=== PATIENT | male | born 1945 | race Caucasian/White ===

== ENCOUNTER → 2020-06-24 13:48 | Outpatient (BNVA) | payer MEDICARE, SELFPAY | PROVIDERS: PCP Internal Medicine; Visit Provider Nurse Practitioner Family | DX: Z13.89 Encounter for screening for other disorder (principal) | CPT/HCPCS: Q3014 ==

== ENCOUNTER 2020-08-24 06:32 | Day surgery (SDC) | payer MEDICARE, SELFPAY ==
--- NOTE | 2020-08-20 08:24 | P.CONAN_ITS ---
HPI - Anesthesia Eval Consult details Narrative: 75yo M for Colonoscopy [facility] Past Medical History Medical History (Updated 08/17/20 @ 14:00 by Dinorah Parekh) GERD (gastroesophageal reflux disease) History of memory loss HTN (hypertension) Hyperlipidemia Lab test negative for COVID-19 virus Vitamin B12 deficiency Family History Family History Father Hx of type 1 diabetes mellitus Mother No problems noted. Surgical History Surgical History History of colonoscopy History of ERCP Social History Social History Alcohol intake: never Smoking Status: Never smoker Meds Allergies Allergy/AdvReac Type Severity Reaction Status Date / Time No Known Allergies Allergy Mild NOT Verified 08/17/20 12:05 APPLICABLE Home Medications Medication Instructions Recorded Confirmed Last Taken Type aspirin 81 mg tablet,delayed 81 mg PO DAILY 06/24/20 08/17/20 Unknown History release atorvastatin 20 mg tablet 20 mg PO DAILY 06/24/20 08/17/20 Unknown History lisinopril 40 mg tablet 40 mg PO DAILY 06/24/20 08/17/20 Unknown History mecobalamin (vitamin B12) 10,000 mcg IM 06/24/20 06/24/20 Unknown History mcg solution for injection memantine 5 mg tablet 5 mg PO QPM 06/24/20 08/17/20 Unknown History pantoprazole 20 mg tablet,delayed 20 mg PO DAILY 06/24/20 08/17/20 Unknown History release Exam Exam Date and Time: August 20, 2020 0824 Height,Weight and Vital Signs: Height 5 ft 5 in Assessment and Plan Assessment Anesthesia Assessment: Chart Reviewed
[2020-08-24 07:12] VITALS: BP 126/93; PULSE 73; RESP 18; TEMP 36.5; O2SAT 97; BMI 28.3
--- NOTE | 2020-08-24 07:30 | P.CONAN_ITS ---
[facility] Past Medical History Medical History (Updated 08/17/20 @ 14:00 by Dinorah Parekh) GERD (gastroesophageal reflux disease) History of memory loss HTN (hypertension) Hyperlipidemia Lab test negative for COVID-19 virus Vitamin B12 deficiency Family History Family History Father Hx of type 1 diabetes mellitus Mother No problems noted. Surgical History Surgical History History of colonoscopy History of ERCP Social History Social History Are you a primary child care associate to a significant other at home: No Do you presently have visiting nurse or other home services: No Alcohol intake: never Smoking Status: Never smoker Use of substances other than those prescribed or required for medical reasons: No Have you been hit, kicked, punched, or otherwise hurt by someone within the past year? If so, by whom?: No Advance Directives Information Provided: No Recently lost weight without trying: No Meds Allergies Allergy/AdvReac Type Severity Reaction Status Date / Time No Known Allergies Allergy Mild NOT Verified 08/17/20 12:05 APPLICABLE Active Medications: Current Medications Generic Name Dose Route Start Last Admin Trade Name Santos PRN Reason Stop Dose Admin Lactated Ringer's 1,000 mls @ 100 mls/hr 08/24/20 07:15 Lr IVCONT .Q10H [facility] Home Medications Medication Instructions Recorded Confirmed Last Taken Type aspirin 81 mg tablet,delayed 81 mg PO DAILY 06/24/20 08/17/20 Unknown History release atorvastatin 20 mg tablet 20 mg PO DAILY 06/24/20 08/17/20 Unknown History lisinopril 40 mg tablet 40 mg PO DAILY 06/24/20 08/17/20 Unknown History mecobalamin (vitamin B12) 10,000 mcg IM 06/24/20 06/24/20 Unknown History mcg solution for injection memantine 5 mg tablet 5 mg PO QPM 06/24/20 08/17/20 Unknown History pantoprazole 20 mg tablet,delayed 20 mg PO DAILY 06/24/20 08/17/20 Unknown History release Exam Exam Date and Time: August 24, 2020 0730 Height,Weight and Vital Signs: Height 5 ft 5 in Weight 77.111 kg Last Vital Signs Temp 97.7 F 08/24/20 07:12 Pulse 73 08/24/20 07:12 Resp 18 08/24/20 07:12 BP 126/93 H 08/24/20 07:12 Pulse Ox 97 08/24/20 07:12
[2020-08-24] MEDS: Lactated Ringers 1,000 ML 100 ML IVCONT (07:32)
--- NOTE | 2020-08-24 07:40 | MHC.SHP ---
Pre-Procedural Eval Section B Chief Complaint: screening Relevant Family History (Specify if Yes): No Relevant Social History: None Present Medications: see Short Stay Collaborative assessment Medical History: Significant History (GERD (gastroesophageal reflux disease) History of memory loss HTN (hypertension) Hyperlipidemia Lab test negative for COVID-19 virus Vitamin B12 deficiency) History of Previous Operations: Relevant previous surgery/procedure and date(s) (ercp) Allergies: Allergies Allergy/AdvReac Type Severity Reaction Status Date / Time No Known Allergies Allergy Mild NOT Verified 08/17/20 12:05 APPLICABLE Review of Systems Sugical H&P ROS: Negative: Constitution, Cardiovascular, Respiratory, Neurological, Psychiatric, Hem-Onc, Allergic/Immunologic, Gastrointestinal, Genitourinary, Musculoskeletal, Integumentary, Endocrine and Eyes/Ears/Nose/Throat Exam Surgical H&P Exam: Normal: HEENT, Normal: Heart, Normal: Lungs, Normal: Extremities, Normal: Abdomen, Normal: Skin and Normal: Neurological Plan Diagnosis/Plan: Unchanged I have reviewed the history and physical and performed a pertinent physical examination on my patient. No changes have occurred unless specified.
[2020-08-24 09:30] VITALS: BP 101/50; PULSE 83; RESP 16; TEMP 36.5; O2SAT 96
--- NOTE | 2020-08-24 09:31 | PM.OP ---
Brief Operative Note Date of Service: 08/24/20 Post-op diagnosis: same Procedure: see op note Surgeon: Cheyenne Coronado MD Anesthesia: MAC Estimated blood loss (mL): 0 Condition: stable Disposition: PACU
--- NOTE | 2020-08-24 09:32 | P.OP_ITS ---
Operative Note Operative Note Date of Service: 08/24/20 Narrative: Operative Information Procedure Description: Colonoscopy COLONOSCOPY Instrument: Olympus variable stiffness pediatric scope 190L Colonoscopy Monitoring: Vital signs and clinical assessment, continuous EKG monitoring, Pulse oximetry, Carbon Dioxide monitoring and blood pressure monitoring were done throughout the procedure. Colon withdrawal time was 14 minutes. Procedure: The patient was placed in the left lateral decubitis position and pre-procedure medications were administered. After a digital rectal examination of the ano-rectum, the video colonoscope was inserted into the rectum and advanced through the colon to the cecum/TI. The colonoscope was slowly withdrawn in a retrograde panoramic fashion and the colon mucosa was carefully examined including a retroflexed view of the rectum. Findings and interventions are described below. Procedure Difficulty:easy Findings: Terminal Ileum-normal Cecum:normal Ascending Colon: normal Transverse Colon -normal Descending Colon: 10 mm sessile polyp removed with cold snare, one prominent fold noted and injected with ORISE but no pit pattern noted to suggest an adenomatous tissue present Sigmoid Colon: Small scattered diverticula Rectum: Retroflexion with small internal hemorrhoids, grade I Anorectum - normal Colon preparation: [place] Bowel Preparation Scale Right colon; 2 Transverse colon: 2 Left colon; 1 (0 = Unprepared colon segment with mucosa not seen due to solid stool that cannot be cleared. 1 = Portion of mucosa of the colon segment seen, but other areas of the colon segment not well seen due to staining, residual stool and/or opaque liquid. 2 = Minor amount of residual staining, small fragments of stool and/or opaque liquid, but mucosa of colon segment seen well. 3 = Entire mucosa of colon segment seen well with no residual staining, small fragments of stool or opaque liquid) Impression and Post Procedure Diagnosis: polyp internal hemorrhoids diverticular disease Plan: High fiber diet leaflet Avoid straining at stool, epsom salts and sitz bath, anusol supps or cream prn Repeat Colonoscopy in 3 years due to left sided prep or earlier if clinically indicated Above findings were reviewed with the patient and relevant handouts were provided if indicated.
[2020-08-24 09:45] VITALS: BP 134/74; PULSE 76; RESP 16; TEMP 36.5; O2SAT 99
== END 2020-08-24 09:00 | disposition home or self-care (01) ==
PROVIDERS: Visit Provider Internal Medicine Gastroenterology
PROC: 0DJD8ZZ Inspection of Lower Intestinal Tract, Via Natural or Artificial Opening Endoscopic (ICD-10-PCS; CPT 45378; principal; 2020-08-24 08:30)
DX: Z12.11 Encounter for screening for malignant neoplasm of colon (principal); D12.4 Benign neoplasm of descending colon; K57.30 Diverticulosis of large intestine without perforation or abscess without bleeding; K64.8 Other hemorrhoids; I10 Essential (primary) hypertension; Z79.82 Long term (current) use of aspirin; Z79.899 Other long term (current) drug therapy
CPT/HCPCS: 45381; 45385; 88305

== ENCOUNTER 2021-02-14 13:20 | Outpatient (REF) | payer MEDICARE, SELFPAY ==
--- NOTE | ~2021-02-14 | XR_ITS ---
EXAMINATION: XR SHOULDER, LEFT CLINICAL INFORMATION: Injury pain. COMPARISON: None TECHNIQUE: AP external rotation, Grashey, scapular Y, and axillary views of the left shoulder. FINDINGS: Moderate degeneration of the AC joint. There is acromial spurring. Mild degeneration of the glenohumeral articulation. Some sclerotic change at the insertion of the superior rotator cuff. There is no acute fracture or dislocation. XR/XR shoulder LT min 2V IMPRESSION: Hxbk-du-joieubcg degenerative changes. Findings may preclude to impingement.
== END 2021-02-14 13:21 | disposition home or self-care (01) ==
LOC: HO.XRAY 13:20
PROVIDERS: Absent Provider Internal Medicine; PCP Internal Medicine; Visit Provider Emergency Medicine
DX: S46.002A Unspecified injury of muscle(s) and tendon(s) of the rotator cuff of left shoulder, initial encounter (principal); X58.XXXA Exposure to other specified factors, initial encounter; Y93.9 Activity, unspecified; Y92.9 Unspecified place or not applicable; Y99.9 Unspecified external cause status
CPT/HCPCS: 73030

== ENCOUNTER → 2021-03-02 10:37 | Outpatient (BNVA) | payer MEDICARE, SELFPAY | PROVIDERS: PCP Internal Medicine; Visit Provider Orthopaedic Surgery | DX: S46.002A Unspecified injury of muscle(s) and tendon(s) of the rotator cuff of left shoulder, initial encounter (principal); W10.9XXA Fall (on) (from) unspecified stairs and steps, initial encounter; Y93.01 Activity, walking, marching and hiking; Y92.9 Unspecified place or not applicable; Y99.8 Other external cause status; I10 Essential (primary) hypertension; E78.5 Hyperlipidemia, unspecified; E53.8 Deficiency of other specified B group vitamins | CPT/HCPCS: 20610; 99202; J1040 ==

== ENCOUNTER 2021-03-25 12:26 | Outpatient (REF) | payer MEDICARE, SELFPAY ==
--- NOTE | ~2021-03-25 | MR_ITS ---
EXAMINATION: MR SHOULDER WITHOUT CONTRAST, LEFT CLINICAL INFORMATION: Rotator cuff injury. Left shoulder pain. COMPARISON: Radiograph dated 02/14/2021 TECHNIQUE: MR images of the shoulder were obtained on a 1.5 Lakeisha high-field strength scanner without intravenous contrast material. FINDINGS: ROTATOR CUFF: A full-thickness insertional tear of the supraspinatus tendon extends anteriorly into the biceps sling and measures 2.4 cm AP with tendon retraction up to 5 mm. There is an associated partial-thickness articular-sided tear of the subscapularis tendon measuring 1.8 cm craniocaudal and 2.3 cm longitudinal, involving at least one-half of the overall tendon cross-section, most notably at the lesser tuberosity insertion. The infraspinatus tendon is largely intact aside from a punctate 2 mm focus of interstitial delamination at the anterior margin of its insertion. Teres minor is normal. No muscle atrophy or fatty infiltration. BICEPS: Mild tendinosis. No tear or subluxation. CORACOACROMIAL ARCH: The undersurface of the acromion is minimally curved with no subacromial spur. Mqebpycq-xb-srnevk acromioclavicular osteoarthritis. Small volume of fluid in the subacromial-subdeltoid bursa. LABRUM/CAPSULE: Sublabral cleft at the superior labrum likely corresponds to a sulcus. There is associated fraying of the superior labrum and anteroinferior labrum. No discrete tears. GLENOHUMERAL JOINT/MARROW: Small marginal osteophytes are present at the glenoid and humeral head. There is mild nonuniform chondral thinning at the glenoid posterosuperiorly. No fracture or malalignment. Small joint effusion. MR/MR shoulder LT wo con IMPRESSION: 1. Wkvo-chgm-jyichdmmv 2.4 cm (AP) insertional tear of the supraspinatus tendon extending anteriorly into the biceps sling. 2. A 1.8 x 2.3 cm partial-thickness articular-sided insertional tear of the subscapularis tendon involving at least one-half of the overall tendon cross-section. 3. Mild biceps tendinosis. 4. Wgqvvxqe-ya-kjvhah acromioclavicular osteoarthritis. 5. Mild glenohumeral osteoarthritis with fraying of the superior labrum.
== END 2021-03-25 12:27 | disposition home or self-care (01) ==
LOC: HO.MRI 12:26
PROVIDERS: PCP Internal Medicine; Visit Provider Internal Medicine
DX: S46.002A Unspecified injury of muscle(s) and tendon(s) of the rotator cuff of left shoulder, initial encounter (principal)
CPT/HCPCS: 73221

== ENCOUNTER 2023-02-27 17:43 | Outpatient (REF) | payer MEDICARE, SELFPAY | END 2023-02-27 17:44 | disposition home or self-care (01) | LOC: HO.HHCLNP 17:43 | PROVIDERS: Visit Provider Internal Medicine | DX: R35.0 Frequency of micturition (principal) | CPT/HCPCS: 87086 ==

== ENCOUNTER 2023-02-28 09:09 | Outpatient (REF) | payer MEDICARE, SELFPAY ==
[2023-02-28 11:21] LABS: MANUAL DIFF FLAG NO
[2023-02-28 11:42] LABS: Basophils Percent Auto 0.5 % (0-2); Eosinophils Absolute Auto 0.1 X10*3/uL (0.0-0.4); Eosinophils Percent Auto 2.6 % (0-4); Hematocrit 41.6 % (42.0-52.0); Hemoglobin 13.2 g/dl (14.0-18.0); Imm Gran Abs Auto 0.02 X10*3/uL (0.00-0.03); Imm Gran Pct Auto 0.5 % (0.0-0.4); Lymphocytes Absolute Auto 1.4 X10*3/uL (1.2-4.9); Lymphocytes Percent Auto 32.6 % (20-40); Mean Corpuscular HGB Conc 31.7 g/dl (31.0-36.0); Mean Corpuscular Hemoglobin 29.3 pg (27.0-33.0); Mean Corpuscular Volume 92.4 fL (80.0-98.0); Mean Platelet Volume 10.8 fL (9.4-12.4); Monocytes Absolute Auto 0.4 X10*3/uL (0.1-1.2); Monocytes Percent Auto 9.6 % (2-11); Neutrophils Absolute Auto 2.3 x10*3/uL (2.0-8.3); Neutrophils Percent Auto 54.2 % (45-73); Platelet Count 200 X10*3/uL (160-400); Red Cell Distribution Width 12.1 % (11.0-16.0); White Blood Count 4.2 X10*3/uL (4.8-10.8)
[2023-02-28 12:03] LABS: Alanine Aminotransferase 30 U/L (0-40); Alkaline Phosphatase 86 U/L (39-117); Amylase 209 U/L (28-100); Anion Gap 11 (12-20); Aspartate Amino Transferase 32 U/L (5-37); Bilirubin Direct 0.2 mg/dL (0.0-0.5); Bilirubin Total 0.5 mg/dL (0.0-1.0); Blood Urea Nitrogen 20 mg/dL (9-16); Calcium 9.4 mg/dL (8.4-10.2); Carbon Dioxide 29 mmol/L (22-29); Chloride 106 mmol/L (96-108); Cholesterol 171 mg/dL (<200); Estimated Glomerular Filt Rate 57; Glucose Random 96 mg/dL (60-115); HDL Cholesterol 41 mg/dL (>40); LDL Cholesterol Calculated 110 mg/dL (<100); Lipase 36 U/L (8-78); Potassium 4.8 mmol/L (3.3-5.1); Sodium 141 mmol/L (135-145); Total Protein 7.1 g/dL (6.5-8.0); Triglycerides 104 mg/dL (<150)
== END 2023-02-28 09:10 | disposition home or self-care (01) ==
LOC: HO.HHCL 09:09
PROVIDERS: Visit Provider Internal Medicine
DX: R10.9 Unspecified abdominal pain (principal)
CPT/HCPCS: 36415; 80048; 80061; 80076; 82150; 83690; 85025

== ENCOUNTER 2023-03-28 07:59 | Outpatient (REF) | payer MEDICARE, SELFPAY ==
--- NOTE | ~2023-03-28 | US_ITS ---
EXAMINATION: US ABDOMEN COMPLETE CLINICAL INFORMATION: Right-sided abdominal pain. COMPARISON: MRI abdomen without contrast dated 06/24/2008. Ultrasound abdomen complete dated 06/23/2008. TECHNIQUE: Real-time imaging of the abdominal viscera. FINDINGS: PANCREAS: Largely obscured by overlying bowel gas. ABDOMINAL AORTA: The proximal and distal segments are normal in caliber. INFERIOR VENA CAVA: Visualized portions are normal. LIVER: The liver is normal in size. The liver contour is normal. Increased hepatic parenchymal echogenicity. No focal hepatic lesion. There is no intrahepatic biliary duct dilatation seen. GALLBLADDER: Unremarkable. The gallbladder is physiologically distended without evidence of stones, sludge, polyps, wall thickening or pericholecystic fluid. COMMON BILE DUCT: Normal in caliber measuring 0.5 cm in diameter. RIGHT KIDNEY: Simple lower pole cyst measuring 1.1 cm. Findings are not clinically significant and no dedicated followup imaging is recommended. No hydronephrosis or renal calculi. The kidney measures 9.9 cm in maximum dimension. LEFT KIDNEY: Normal. No hydronephrosis. No renal calculi or focal parenchymal lesions. The kidney measures 9.5 cm in maximum dimension. SPLEEN: Normal. The spleen measures 8.6 cm in maximum dimension. FREE FLUID: None. US/US abdomen complete IMPRESSION: 1. Increased hepatic parenchymal echogenicity, which can be seen in the setting of steatosis. Underlying hepatocellular disease cannot be excluded. No hepatic parenchymal lesion or biliary ductal dilatation. 2. No cholelithiasis, gallbladder wall thickening, or pericholecystic free fluid to suggest acute cholecystitis.
== END 2023-03-28 08:00 | disposition home or self-care (01) ==
LOC: HO.US 07:59
PROVIDERS: PCP Internal Medicine; Visit Provider Internal Medicine
DX: R10.9 Unspecified abdominal pain (principal)
CPT/HCPCS: 76700

== ENCOUNTER 2023-04-19 08:50 | Outpatient (REF) | payer MEDICARE, SELFPAY ==
[2023-04-19 11:21] LABS: MANUAL DIFF FLAG NO
[2023-04-19 11:49] LABS: Basophils Percent Auto 0.5 % (0-2); Eosinophils Absolute Auto 0.2 X10*3/uL (0.0-0.4); Eosinophils Percent Auto 2.1 % (0-4); Hematocrit 41.4 % (42.0-52.0); Hemoglobin 13.1 g/dl (14.0-18.0); Imm Gran Abs Auto 0.03 X10*3/uL (0.00-0.03); Imm Gran Pct Auto 0.4 % (0.0-0.4); Lymphocytes Absolute Auto 1.3 X10*3/uL (1.2-4.9); Lymphocytes Percent Auto 17.5 % (20-40); Mean Corpuscular HGB Conc 31.6 g/dl (31.0-36.0); Mean Corpuscular Hemoglobin 29.2 pg (27.0-33.0); Mean Corpuscular Volume 92.2 fL (80.0-98.0); Mean Platelet Volume 10.8 fL (9.4-12.4); Monocytes Absolute Auto 0.4 X10*3/uL (0.1-1.2); Monocytes Percent Auto 5.4 % (2-11); Neutrophils Absolute Auto 5.6 x10*3/uL (2.0-8.3); Neutrophils Percent Auto 74.1 % (45-73); Platelet Count 276 X10*3/uL (160-400); Red Blood Count 4.49 X10*6/uL (4.60-5.80); White Blood Count 7.5 X10*3/uL (4.8-10.8)
[2023-04-19 12:11] LABS: Iron 116 mcg/dL (45-160); Percent Iron Saturation 39 % (15-50); Total Iron Binding Capacity 294 mcg/dL (228-428); Unsaturated Iron Binding 178 ug/dL
== END 2023-04-19 08:51 | disposition home or self-care (01) ==
LOC: HO.HHCL 08:50
PROVIDERS: Visit Provider Internal Medicine
DX: D64.9 Anemia, unspecified (principal)
CPT/HCPCS: 36415; 83540; 85025

== ENCOUNTER 2023-06-28 10:41 | Outpatient (REF) | payer MEDICARE, SELFPAY ==
--- NOTE | ~2023-06-28 | XR_ITS ---
EXAMINATION: XR KNEE, LEFT CLINICAL INFORMATION: Left knee pain for one month. COMPARISON: None available. TECHNIQUE: AP, oblique, and lateral views of the left knee. FINDINGS: Mild medial and patellofemoral compartment joint space narrowing. Tiny tricompartmental marginal osteophytes. No osseous erosion. Small joint effusion. No abnormal soft tissue calcification. No acute fracture or dislocation. XR/XR knee LT 3V IMPRESSION: Mild tricompartmental osteoarthritis. Small joint effusion.
== END 2023-06-28 10:42 | disposition home or self-care (01) ==
LOC: HO.HHCX 10:41
PROVIDERS: Visit Provider Family Medicine
DX: M25.562 Pain in left knee (principal)
CPT/HCPCS: 73562

== ENCOUNTER 2023-10-24 16:40 | Outpatient (REF) | payer MEDICARE, SELFPAY | END 2023-10-24 16:41 | disposition home or self-care (01) | LOC: HO.HOSX 16:40 | PROVIDERS: Visit Provider Physician Assistant | DX: Z13.89 Encounter for screening for other disorder (principal) ==

== ENCOUNTER 2023-10-26 09:09 | Outpatient (REF) | payer OTHER, SELFPAY ==
--- NOTE | ~2023-10-26 | XR_ITS ---
EXAMINATION: XR KNEE, RIGHT AP upright both knees CLINICAL INFORMATION: Pain in the knee COMPARISON: X-rays of the left knee June 2023 TECHNIQUE: AP upright of both knees. Patella view left knee FINDINGS: Left knee: There is joint space narrowing medial compartment with small marginal osteophytes indicative of moderate osteoarthritis which appears progressed compared to prior exam given the increased joint space narrowing in the upright position. Lateral compartment normal. Small marginal osteophytes but patellofemoral compartment without joint space narrowing indicative of mild osteoarthritis probably unchanged. Right knee limited AP upright: Mild joint space narrowing indicative of mild osteoarthritis. Lateral compartment unremarkable. XR/XR knee RT 2V IMPRESSION: LEFT KNEE: Osteoarthritis with degenerative changes most prominent in the medial compartment being moderate and appears progressed compared with the June 2023 exam. RIGHT KNEE: Mild osteoarthritis.
--- NOTE | ~2023-10-26 | XR_ITS ---
EXAMINATION: XR KNEE, RIGHT AP upright both knees CLINICAL INFORMATION: Pain in the knee COMPARISON: X-rays of the left knee June 2023 TECHNIQUE: AP upright of both knees. Patella view left knee FINDINGS: Left knee: There is joint space narrowing medial compartment with small marginal osteophytes indicative of moderate osteoarthritis which appears progressed compared to prior exam given the increased joint space narrowing in the upright position. Lateral compartment normal. Small marginal osteophytes but patellofemoral compartment without joint space narrowing indicative of mild osteoarthritis probably unchanged. Right knee limited AP upright: Mild joint space narrowing indicative of mild osteoarthritis. Lateral compartment unremarkable. XR/XR knee LT 1V IMPRESSION: LEFT KNEE: Osteoarthritis with degenerative changes most prominent in the medial compartment being moderate and appears progressed compared with the June 2023 exam. RIGHT KNEE: Mild osteoarthritis.
== END 2023-10-26 09:10 | disposition home or self-care (01) ==
LOC: HO.HOSX 09:09
PROVIDERS: Visit Provider Physician Assistant
DX: M17.12 Unilateral primary osteoarthritis, left knee (principal); M25.561 Pain in right knee
CPT/HCPCS: 73560; 99202

== ENCOUNTER 2023-10-26 09:34 | Outpatient (AMB) | payer MEDICARE, SELFPAY ==
--- NOTE | 2023-10-26 10:01 | A.OFFVIS_ITS ---
Intake Visit Reasons: N/P left knee O.A pain Intake Note: Ubaldo is a 78 year old male who presents today as a new patient with complaints of left knee pain. Patient reports that he has had pain since June of 2023. He has pain and swelling of the knee, hx of cortisone injection 2 months ago at another office which helped him. The knee gives out occasionally, but no falls reported. Allergies No Known Allergies Allergy (Mild, Verified 10/26/23 10:05) NOT APPLICABLE HPI HPI N/P left knee O.A pain : Details: 78--year-old male, who is Bulgarian speaking, presents in the office today for an evaluation of left knee pain. Patient was referred to the off by Devi Martinez NP. Per Family Medicine note which states the patient has a history of injection and Diclofenac cream. Patient reports having left knee pain since 06/2023. He confirmed pain and edema in the knee. He confirmed a cortisone injection 2 months ago at another office that gave him some relief. Confirms the knee gives out on him occasionally but has not fallen yet. [facility] Medical History History of memory loss Lab test negative for COVID-19 virus HTN (hypertension) Vitamin B12 deficiency Hyperlipidemia GERD (gastroesophageal reflux disease) Surgical History History of ERCP History of colonoscopy Family History Father Hx of type 1 diabetes mellitus Mother No problems noted. Social History Are you a primary senior care manager to a significant other at home: No Do you presently have visiting nurse or other home services: No Alcohol intake: never Current occupational status: retired Current occupation: lt handed Review of Systems Const All systems reviewed & are unremarkable except as noted in HPI and below Physical Exam Const General: cooperative, healthy appearing and no acute distress Resp Effort & Inspection: normal respiratory effort and able to speak in complete sentences Cardio Rate: regular rate Peripheral pulses: Peripheral pulses 2+ throughout GI Palpation (GI): Soft to palpation Skin Lesions: no lesions Rashes: no rashes Extrem Other: Left knee: Normal to inspection. No ecchymosis, erythema, or joint effusion. No tenderness to palpation along the medial or lateral joint lines. Full knee extension and flexion. Crepitus felt with ROM. NVI. Assessment & Plan Assessment & Plan (1) Osteoarthritis of left knee: Code(s): M17.12 - Unilateral primary osteoarthritis, left knee Category: Medical Qualifiers: Osteoarthritis type: unspecified Qualified Code(s): M17.12 - Unilateral primary osteoarthritis, left knee Plan Mr. Azevedo is a 78--year-old male, who is Bulgarian speaking, presents in the offi ce today for an evaluation of left knee pain. Patient was referred to the off by Devi Martinez NP. Per Family Medicine note which states the patient has a history of injection and Diclofenac cream. Patient reports having left knee pain since 06/2023. He confirmed pain and edema in the knee. He confirmed a cortisone injection 2 months ago at another office that gave him some relief. Confirms the knee gives out on him occasionally but has not fallen yet. Patient was given a genumed knee brace off the shelf in the office today. We will petition the insurance for approval of Gel injections as it is too soon for cortisone injections. It has been two months since his last injection. A prescription for topical cream was sent to the pharmacy today. Follow up will be after insurance approval for Gel injections is obtained, or sooner if needed. X-rays of the left knee which were obtained while in the office today and were reviewed by me, Carmela Valverde PA-C, revealed osteoarthritis. X-rays of the left knee, obtained on 06/28/2023, revealed: Mild tricompartmental osteoarthritis. Small joint effusion. Orders: Orders XR knee LT 1V Today M25.569 - Pain in unspecified knee XR knee RT 2V Today M25.569 - Pain in unspecified knee Patient Instructions: Scribed by Chantale Shah director medical surgical, for Carmela Valverde PA-C on 10/26/2023 at 9:47 am, EST.
== END 2023-10-26 10:46 | disposition home or self-care (01) ==
PROVIDERS: PCP Internal Medicine; Visit Provider Physician Assistant
DX: M17.12 Unilateral primary osteoarthritis, left knee (principal)
CPT/HCPCS: 99203

== ENCOUNTER 2025-02-11 08:53 | Outpatient (REF) | payer OTHER, SELFPAY ==
--- OUTSIDE RECORDS SUMMARY | 2025-02-11 09:04 | XMS_ITS | Encounter Summary ---
Author Organization [employer] Address [address] [place] [address] Care Team Providers Care Bung Remover Name Role Phone Alida Lassiter MD Primary Care Provide r Encounter Details Date Type Department Care Team ([facility] st Contact Info) Description 02/06/2025 Telephone [facility] [address] [place], [place] [phone] Gardenia Johnson [address] [place], [place] [phone] Social History Tobacco Use Types Packs/Day Years Used Date Smoking Tobacco: Never Passive Smoke Exposure: Never Smokeless Tobacco: Never Alcohol Use Standard Drinks/Week Comments Never 0 (1 standard drink = 0.6 oz pur e alcohol) Alcohol Answer Date Recorded Frequency of Alcohol Consumption Not on file 05/13/2024 Average Number of Drinks Not on file 024 Frequency of Binge Drinking Not on file 11/2023 Score 0 05/13/2024 Depression Answer Date Recorded Patient Health Questionnaire-9 Score 0 10/24/2023 Patient Health Questionnaire-9 Score 0 10/24/2023 Last PHQ-9: Questionnaire Data Not on file 0 10/24/2023 Housing Stability Answer Date Recorded What is your housing situation today? I have anita duke 07/04/[address] you li ve. Do you have problems with any of the following? None of the above 07/04/2023 Food Insecurity Answer Date Recorded Within the past 12 months, y ou worried that your food would run out before you got money to buy more: Never True 07/04/2023 Within the past 12 months,th e food you bought just didn't last and you didn't have enough money to get more: Never True Transportation Answer Date Recorded In the past 12 months, has l ack of transportation kept you from medical appts, meetings, work or from getting things needed for daily living? No 07/04/2023 Utilities Answer Date Recorded In the past 12 months, has t he electric, gas, oil or water company threatened to shut off services in your home? No 07/04/2023 Depression Answer Date Recorded Patient Health Questionnaire-2 Score 0 10/24/2023 Sex and Gender Information Value Date Recorded Sex Assigned at Male 05/08/2022 10:14 AM EDT Legal Sex Male 10:14 AM EDT Gender Identity Male 05/08/2022 10:14 AM EDT Sexual Orientation Straight 05/08/2022 10 :14 AM EDT documented as of this encounter Miscellaneous Notes * Telephone Encounter - Oswald Madison - 02/06/2025 3:55 PM EDT Call patient to offer an appointment for cleaning due to a cancellation but there was no answer so I left a voicemail. documented in this encounter Plan of Treatment Upcoming Encounters Date Type Department Care Team (Late st Contact Info) Description 02/11/2025 9:20 AM EDT Office Visit [facility] [address] [place] [phone] 03/13/2025 11:15 AM EDT Office Visit [facility] [address] [place] [phone] Alida Lassiter MD [address] [place] [phone] documented as of this encounter Visit Diagnoses Not on filedocumented in this encounter Additional Health Concerns Assessment Noted Time PHQ-9 Depression Total Score: 0 10/24/19 24 9:44 AM EDT documented as of this encounter Care Teams Bung Remover Relationship Specialty Start Date End Date Alida Lassiter MD [address] [place] [phone] PCP - General Family Medicine 03/20/18 documented as of this encounter
[2025-02-11 11:33] LABS: MANUAL DIFF FLAG NO
[2025-02-11 11:39] LABS: Hematocrit 38.3 % (42.0-52.0); Hemoglobin 12.9 g/dl (14.0-18.0); Imm Gran Abs Auto 0.02 X10*3/uL (0.00-0.03); Imm Gran Pct Auto 0.5 % (0.0-0.4); Lymphocytes Absolute Auto 1.4 X10*3/uL (1.2-4.9); Mean Corpuscular HGB Conc 33.7 g/dl (31.0-36.0); Mean Corpuscular Hemoglobin 30.3 pg (27.0-33.0); Mean Corpuscular Volume 89.9 fL (80.0-98.0); NRBC Abs Auto 0.000 X10*3/uL (0.0-0.012); NRBC Pct Auto 0.0 /100WBC (0.0-0.2); Platelet Count 243 X10*3/uL (160-400); Red Blood Count 4.26 X10*6/uL (4.60-5.80); White Blood Count 4.2 X10*3/uL (4.8-10.8)
[2025-02-11 11:57] LABS: Alanine Aminotransferase 36 U/L (0-40); Albumin Level 4.4 g/dL (3.5-5.0); Alkaline Phosphatase 121 U/L (39-117); Anion Gap 12 (12-20); Aspartate Amino Transferase 43 U/L (5-37); Blood Urea Nitrogen 20 mg/dL (9-16); Calcium 9.2 mg/dL (8.4-10.2); Carbon Dioxide 26 mmol/L (22-29); Chloride 106 mmol/L (96-108); Cholesterol 210 mg/dL (<200); Estimated Glomerular Filt Rate > 60; HDL Cholesterol 47 mg/dL (>40); Potassium 4.4 mmol/L (3.3-5.1); Sodium 140 mmol/L (135-145); Total Protein 7.3 g/dL (6.5-8.0); Triglycerides 129 mg/dL (<150)
== END 2025-02-11 08:54 | disposition home or self-care (01) ==
LOC: HO.HHCL 08:53
PROVIDERS: PCP Internal Medicine; Visit Provider Internal Medicine
DX: I10 Essential (primary) hypertension (principal); Z13.220 Encounter for screening for lipoid disorders
CPT/HCPCS: 36415; 80053; 80061; 85025

== ENCOUNTER 2025-05-13 11:15 | Outpatient (REF) | payer OTHER, SELFPAY ==
--- NOTE | ~2025-05-13 | CT_ITS ---
EXAMINATION: CT ABDOMEN PELVIS WITH IV CONTRAST HISTORY: chronic RLQ pain COMPARISON: Previous abdominal ultrasound most recent March 2023 TECHNIQUE: CT scan of the abdomen and pelvis was performed following administration of 85 mL Omnipaque 350 using standard departmental protocol. Coronal and sagittal reformatted images were generated and reviewed. This CT exam was performed with one or more of the following dose reduction techniques: automated exposure control, adjustment of the mA and/or kV according to patient size, use of iterative reconstruction technique. DLP: 379 mGy-cm FINDINGS: LOWER CHEST: The visualized lung bases are clear. There is no pleural effusion. CARDIOVASCULATURE: The heart is normal in size. There is no pericardial effusion. LIVER: The liver is normal in size and contour. No liver mass is identified. The hepatic and portal veins are patent. GALLBLADDER / BILE DUCTS: The gallbladder is unremarkable. There is no intra or extrahepatic biliary ductal dilatation. SPLEEN: The spleen is normal in size. No focal splenic lesion is identified. PANCREAS: The pancreas is unremarkable in appearance. ADRENAL GLANDS: Within normal limits. KIDNEYS/RETROPERITONEUM: Right renal cyst measuring 12 mm in the upper pole. No renal calculi are identified. There is no hydronephrosis. No renal masses are identified. LYMPH NODES: No abdominal or pelvic lymphadenopathy. VASCULATURE: The abdominal aorta is normal in caliber. MESENTERY/PERITONEUM: No free fluid. No masses. There is no free intraperitoneal gas. STOMACH: Normal SMALL BOWEL: The small bowel is normal in caliber. COLON: Mild diverticulosis. No evidence of diverticulitis. Mild constipation. 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 APPENDIX: Not seen. No inflammatory changes in the right lower quadrant. URINARY BLADDER/PELVIC ORGANS: The urinary bladder is unremarkable. The prostate gland does not appear enlarged. BONES / SOFT TISSUES: Small right inguinal hernia containing fat. Degenerative changes of the spine and curvature of the lower lumbar spine to the right. Degenerative changes at the hip joints. CT/CT abdomen pelvis w IV con IMPRESSION: Mild constipation and diverticulosis. No evidence of diverticulitis or obstruction. Appendix not seen. No inflammatory changes seen in the right lower quadrant. Small right inguinal hernia containing fat. Small right renal cyst. Electronically signed by: Alisia Rabago MD 05/13/2025 02:06 PM KYLE[facility]
--- OUTSIDE RECORDS SUMMARY | 2025-05-13 13:43 | XMS_ITS | Encounter Summary ---
Author Organization [employer] Address [address] [place] [address] Care Team Providers Care Scrap Metal Collector Name Role Phone Ailda Lassiter MD Primary Care Provide r Encounter Details Date Type Department Care Team ([facility] Contact Info) Description 09/08/2022 Abstract [facility] [address] [place] [address] Rodrigo Cummings DDS [address] [place] [phone] Social History Tobacco Use Types Packs/Day Years Used Date Smoking Tobacco: Never Smokeless Tobacco: Never Alcohol Use Standard Drinks/Week Comments Never 0 (1 standard drink = 0.6 oz pur e alcohol) Sex and Gender Information Value Date Recorded Sex Assigned at Male 05/08/2022 10:14 AM EDT Legal Sex Male 10:14 AM EDT Gender Identity Male 05/08/2022 10:14 AM EDT Sexual Orientation Straight 05/08/2022 10 :14 AM EDT COVID-19 Exposure Response Date Recorded In the last 10 days, have yo u been in contact with someone who was confirmed or suspected to have Coronavirus/COVID-19? No / Unsure 09/05/2022 12:37 PM EST documented as of this encounter Plan of Treatment Upcoming Encounters Date Type Department Care Team ([facility] Contact Info) Description 06/25/2025 10:15 AM EST Office Visit [facility] [address] [place] [address] Alida Lassiter MD [address] [place], [place] [phone] 08/27/2025 8:00 AM EST Office Visit [facility] [address] [place], [place] [phone] Kelsi Campos [address] [place], [place] [phone] documented as of this encounter Visit Diagnoses Not on filedocumented in this encounter Care Teams Scrap Metal Collector Relationship Specialty Start Date End Date Alida Lassiter MD [address] [place], [place] [phone] PCP - General Family Medicine 03/20/18 documented as of this encounter
--- OUTSIDE RECORDS SUMMARY | 2025-05-13 13:43 | XMS_ITS | Encounter Summary ---
Author Organization [employer] Address [address] [facility] [address] [place] [address] Care Team Providers Care Center Sales And Service Associate Name Role Phone Alida Lassiter MD Primary Care Provide r Encounter Details Date Type Department Care Team ([facility] Contact Info) Description 09/08/2022 Abstract [facility] [address] [place] [address] Esau Melo DMD [address] [place] [address] Social History Tobacco Use Types Packs/Day Years [...] Upcoming Encounters Date Type Department Care Team ([facility] Contact Info) Description 06/25/2025 10:15 AM EST Office Visit [facility] [address] [place] [address] Alida Lassiter MD [address] [place] [address] 08/27/2025 8:00 AM EST Office Visit [facility] [address] [place], [place] [phone] Sher Camposaris [address] [place], [place] [phone] documented as of this encounter Visit Diagnoses Not on filedocumented in this encounter Care Teams Center Sales And Service Associate Relationship Specialty Start Date End Date Alida Lassiter MD [address] [place] [address] PCP - General Family Medicine 03/20/18 documented as of this encounter
--- OUTSIDE RECORDS SUMMARY | 2025-05-13 13:43 | XMS_ITS | Encounter Summary ---
Author Organization [employer] Address [address] [facility] [address] [place] [address] Care Team Providers Care Capture Manager Name Role Phone Alida Lassiter MD Primary Care Provide r Encounter Details Date Type Department Care Team (Late Contact Info) Description 07/04/2022 Orders Only [facility] [address] [place] [phone] Alyson Owens MD [address] [place] [address] [phone] Vitamin B12 deficiency (Primary Dx) Social History Tobacco Use Types Packs/Day Years Used Date Smoking Tobacco: Never Assessed Sex and Gender Information Value Date Recorded [...] suspected to have Coronavirus/COVID-19? No / Unsure 07/04/2022 8:56 AM EST documented as of this encounter Plan of Treatment Upcoming Encounters Date Type Department Care Team (Late st Contact Info) Description 06/25/2025 10:15 AM EST Office Visit [facility] [address] [place] [phone] Alida Lassiter MD [address] [place] [address] [phone] 08/27/2025 8:00 AM EST Office Visit [facility] [address] [place] [address] Kelsi Campos [address] [place] [address] documented as of this encounter Procedures Procedure Name Priority Date/Time Associated Diagnosis Comments CULTURE, URINE, ROUTINE Routine 02/27/2023 4:05 PM EDT Vitamin B12 deficiency documented in this encounter Results * Culture, Urine, Routine (02/27/2023 4:05 PM EDT) Urine specimen obtained by clean catch procedure / Unknown 02/27/2023 4:05 PM EDT 02/27/2023 5:44 PM EDT Comment:[facility] - 03/01/2023 12:11 PM EDT Urine Culture No growth. Specimen Source: Urine clean catch Alida Azar MD LAB MICROBIOLOGY - [facility] ORDERABLES Final Result [facility] [address] [place] [address] [phone] documented in this encounter Visit Diagnoses Diagnosis Vitamin B12 deficiency- Primary Other B-complex deficiencies documented in this encounter Care Teams Capture Manager Relationship Specialty Start Date End Date Alida Lassiter MD [address] [place] [address] PCP - General Family Medicine 03/20/18 documented as of this encounter
--- OUTSIDE RECORDS SUMMARY | 2025-05-13 13:43 | XMS_ITS | Clinical Summary ---
Author Organization [employer] Address [address] [facility] [place] [address] Care Team Providers Care Sales Professional Bilingual Name Role Phone Alida Lassiter MD Primary Care Provide r Allergies No known active allergies Medications fluticasone (Flonase) 50 MCG/ACT nasal spray Administer 1 spray into affected nostril(s) in the morning. 021 Active loratadine (Claritin) 10 MG tablet Take 1 tablet by mouth at bed time. 022 Active cyanocobalamin (Vitamin B-12) 1000 MCG/ML injection INJECT 1 ML INTRAMUSCULARLY EVERY MONTH 023 Active B Complex-C (RA B-Complex/Vitami n C CR) tablet controlled-relea se Take 1 tablet by mouth in the morning. 90 tablet 1 023 Active simethicone (Mylicon,Gas-X) 180 MG capsuleIndicatio ns:Right sided abdominal pain Take 1 capsule (180 mg) by mouth every 8 (eight) hours if needed for flatulence. 90 capsule 023 Active Elastic Bandages & Supports (Knee Brace/Flex Stays Medium) misc 1 Units 1 (one) time each day at the same time. 1 each 024 Active ferrous sulfate 325 (65 Fe) MG EC tabletIndication s:Anemia, unspecified type TAKE 1 TABLET BY MOUTH EVERY OTHER DAY IN THE MORNING DO NOT BREAK, CRUSH, DISSOLVE OR CHEW 45 tablet 024 Active memantine (Namenda) 5 MG tablet TAKE 1 TABLET BY MOUTH TWICE DAILY IN THE MORNING AND AT BEDTIME 180 tablet 3 024 Active amLODIPine (Norvasc) 10 MG tabletIndication s:Essential hypertension Take 1 tablet (10 mg) by mouth Once per day. 30 tablet 11 025 2025 Active acetaminophen (Tylenol 8 Hour) 650 MG ER tabletIndication s:Primary osteoarthritis of both knees,Chronic pain of left knee Take 2 tablets (1,300 mg) by mouth every 8 (eight) hours if needed for mild pain. 30 tablet 2 025 Active lisinopril 10 MG tabletIndication s:Essential hypertension TAKE 1 TABLET BY MOUTH EVERY MORNING 30 tablet 11 025 Active folic acid (Folvite) 1 MG tabletIndication s:B12 deficiency TAKE 1 TABLET BY MOUTH EVERY MORNING 90 tablet 1 025 Active famotidine (Pepcid) 20 MG tabletIndication s:Right sided abdominal pain TAKE 1 TABLET BY MOUTH TWICE DAILY IN THE MORNING AND IN THE EVENING 60 tablet 3 025 Active Aspirin Low Dose 81 MG EC tablet TAKE 1 TABLET BY MOUTH EVERY MORNING 90 tablet 1 025 Active atorvastatin (Lipitor) 20 MG tabletIndication s:Dyslipidemia TAKE 1 TABLET BY MOUTH AT BEDTIME 90 tablet 1 025 Active pantoprazole (ProtoNix) 20 MG EC tablet TAKE 1 TABLET BY MOUTH EVERY MORNING BEFORE BREAKFAST 90 tablet 1 025 Active Multiple Vitamins-Mineral s (Cerovite Senior) tablet TAKE 1 TABLET BY MOUTH EVERY EVENING 90 tablet 1 025 Active Diclofenac Sodium 1 % gelIndications:P rimary osteoarthritis of both knees,Chronic pain of left knee APPLY 2 GRAMS TOPICALLY TO AFFECTED AREA(S) FOUR TIMES DAILY 100 g 1 025 Active B Fyzemla-T-Xcqgr Acid (B-Complex/Folic Acid/Vitamin C) tablet controlled-relea seIndications:An emia, unspecified type TAKE 1 TABLET BY MOUTH EVERY MORNING 30 tablet 3 025 Active B Jkmvctd-R-Tueav Acid (B-Complex/Folic Acid/Vitamin C) tablet controlled-relea seIndications:An emia, unspecified type TAKE 1 TABLET BY MOUTH EVERY MORNING 30 tablet 3 025 2024 Discontinued Active Problems Problem Noted Date Diagnosed Date Chronic abdominal pain 03/13/2025 Assessment & Plan (03/13/2025 4:12 PM EDT): Do not miss appointment with GI information printed for patient Awaiting for CT of abdomen results Weight loss 03/13/2025 Assessment & Plan (03/13/2025 4:12 PM EDT): Blood work ordered patient will be contacted with results I will prescribe for patient Ensure 1 can daily Steatosis, liver 03/13/2025 Assessment & Plan (03/13/2025 4:12 PM EDT): Patient has history of liver steatosis ultrasound ordered today Early satiety 03/13/2025 Assessment & Plan (03/13/2025 4:13 PM EDT): Patient referred to GI Ensure will be prescribed today Periodontal disease 01/13/2025 Right lower quadrant pain 09/05/2024 Assessment & Plan (02/11/2025 10:29 PM EDT): -Abd US 2022 Increased hepatic parenchymal echogenicity,No cholelithiasis,gallbladder wall thickening, or pericholecystic free fluid to suggest acute cholecystitis. -2022 last chem cr 1.22 GFR 57 wnl,lipase wnl,amylase elevated -today chem GFR > 60, AST 43, ALT wnl ,alk phos 121 Will need to r/o incisional hernia,partial obstruction ,masses -referred today for CT abd/pelvis w contrast w normal chem today -referred to GI no colonoscoy done before pt agreed today for evaluation of chronic pain and for consideration of colonoscopy -alarm signs and symptoms dicsussed -tylenol prn that helps w symptoms Assessment & Plan (09/05/2024 4:12 PM EST): Advised to do a food diary Advised to increase fiber, fresh fruits and vegetables on his diet Report back if problem persists or gets worse Primary osteoarthritis of both knees 09/05/2024 Chronic periodontitis 07/08/2024 Disturbances in tooth eruption 07/08/2024 Chronic dental pain 07/08/2024 Severe localized gingival recession 07/08/2024 Arthritis of left knee 09/11/2023 Assessment & Plan (09/11/2023 1:24 PM EST): Chronic pain increasing, denies joint instability, recent trauma or falls, Renewed acetaminophen and diclofenac, Brace ordered, Referral to ortho Pt aware of s/s to report Preventative health care 07/30/2023 Assessment & Plan (07/30/2023 4:36 PM EST): See HPI Precordial pain 07/30/2023 Preop examination 07/04/2023 Assessment & Plan (07/04/2023 3:05 PM EST): Patient low risk for low risk procedure RCRI score 0 which is 3.9% Patient instructed to be NPO after midnight the day f the procedure Patient instructed to take his blood pressure medication the day of the procedure with small sip of water Chronic pain of left knee 07/04/2023 Assessment & Plan (09/05/2024 4:14 PM EST): I will prescribe for patient acetaminophen as needed and diclofenac gel apply twice a day if needed Assessment & Plan (05/13/2024 10:59 AM EST): C/w acetaminophen PRN and diclofenac gel PRN Assessment & Plan (10/24/2023 12:22 PM EDT): Orthopedics referral printed and given to patient Anemia 04/05/2023 Abdominal pain 04/04/2023 Hypertensive disorder 04/04/2023 Assessment & Plan (05/13/2024 10:59 AM EST): Maintenance: BMP: ordered Lipid Panel: ordered ASCVD Risk: Calculate pending updated labs - Aerobic exercise to reduce BP. Initial goal of 30 min walk 3-5x/week. Increase as tolerated. - low-sodium diet (goal: <2g/day) and heart healthy diet such as DASH to reduce BP and prevent ASCVD. - Home BP monitoring 1-2 x day with goal of <140/90. - Seek immediate medical attention for chest pain, palpitations, SOB, syncope, or sudden changes in mental status. - Do not change or discontinue current prescriptions without first consulting health care provider Cough 04/04/2023 Assessment & Plan (01/23/2024 11:08 AM EDT): Drink plenty of water Cough syrup if needed If worsening symptoms patient instructed to call us or come to the [facility] Right sided abdominal pain 02/27/2023 Urinary frequency 02/27/2023 Left flank pain 02/27/2023 Dental calculus 10/26/2022 Gingival recession, generalized 10/26/2022 Cobalamin deficiency 08/08/2017 Vitamin deficiency 07/03/2017 Seasonal allergic rhinitis 07/03/2017 Osteoarthritis of multiple joints 07/03/2017 Memory impairment 07/03/2017 Hyperlipidemia 07/03/2017 Gastroesophageal reflux disease without esophagi tis 07/03/2017 Essential hypertension 07/03/2017 Assessment & Plan (03/13/2025 4:12 PM EDT): I advised: - Aerobic exercise to reduce BP. Initial goal of 30 min walk 3-5x/week. Increase as tolerated. - low-sodium diet (goal: <2g/day) and heart healthy diet such as DASH to reduce BP and prevent ASCVD. - Home BP monitoring 1-2 x day with goal of <140/90. - Seek immediate medical attention for chest pain, palpitations, SOB, syncope, or sudden changes in mental status. - Do not change or discontinue current prescriptions without first consulting health care provider Assessment & Plan (02/11/2025 10:26 PM EDT): BP elevated today ,not took yet BP med this am,encourage to be consistent w meds ,also maybe elevated from pain -has apt w PCP 03/13/2025 already scheduled Assessment & Plan (09/05/2024 4:13 PM EST): I advise: - Aerobic exercise to reduce BP. Initial goal of 30 min walk 3-5x/week. Increase as tolerated. - low-sodium diet (goal: <2g/day) and heart healthy diet such as DASH to reduce BP and prevent ASCVD. - Home BP monitoring 1-2 x day with goal of <140/90 - Seek immediate medical attention for chest pain, palpitations, SOB, syncope, or sudden changes in mental status. - Do not change or discontinue current prescriptions without first consulting health care provider Assessment & Plan (01/23/2024 11:09 AM EDT): - Aerobic exercise to reduce BP. Initial goal of 30 min walk 3-5x/week. Increase as tolerated. - low-sodium diet (goal: <2g/day) and heart healthy diet such as DASH to reduce BP and prevent ASCVD. - Home BP monitoring 1-2 x day with goal of <140/90. - Seek immediate medical attention for chest pain, palpitations, SOB, syncope, or sudden changes in mental status. - Do not change or discontinue current prescriptions without first consulting health care provider Assessment & Plan (10/24/2023 12:21 PM EDT): C/w amlodipine 10mg daily I will add today lisinopril 10mg daily and advise to monitor his BP at home, I also advise low Na diet Assessment & Plan (09/11/2023 1:26 PM EST): Above goal today, pt attributes this to pain, denies symptoms Encouraged follow up with pcp Assessment & Plan (07/30/2023 4:36 PM EST): Maintenance: BMP: up to date Lipid Panel: up to date ASCVD Risk: on ASA 81mg daily and atorvastatin 20mg daily -I will discontinue losartan and start him on amlodipine 10mg daily instead RTC 2 weeks with nurse if BP not at goal plan is to add HCTZ12.5mg - Aerobic exercise to reduce BP. Initial goal of 30 min walk 3-5x/week. Increase as tolerated. - low-sodium diet (goal: <2g/day) and heart healthy diet such as DASH to reduce BP and prevent ASCVD. - Home BP monitoring 1-2 x day with goal of <140/90. - Seek immediate medical attention for chest pain, palpitations, SOB, syncope, or sudden changes in mental status. - Do not change or discontinue current prescriptions without first consulting health care provider Assessment & Plan (07/04/2023 3:06 PM EST): Patient today did not took his blood pressure medication It was advise not to miss any dose of his medications It was advise: - Aerobic exercise to reduce BP. Initial goal of 30 min walk 3-5x/week. Increase as tolerated. - low-sodium diet (goal: <2g/day) and heart healthy diet such as DASH to reduce BP and prevent ASCVD. - Home BP monitoring 1-2 x day with goal of <140/90. - Seek immediate medical attention for chest pain, palpitations, SOB, syncope, or sudden changes in mental status. - Do not change or discontinue current prescriptions without first consulting health care provider Assessment & Plan (04/05/2023 4:44 PM EDT): - Aerobic exercise to reduce BP. Initial goal of 30 min walk 3-5x/week. Increase as tolerated. - low-sodium diet (goal: <2g/day) and heart healthy diet such as DASH to reduce BP and prevent ASCVD. - Home BP monitoring 1-2 x day with goal of <140/90. - Seek immediate medical attention for chest pain, palpitations, SOB, syncope, or sudden changes in mental status. - Do not change or discontinue current prescriptions without first consulting health care provider Encounters Date Type Department Care Team Description 04/29/2025 Refill [facility] [address] [place] [address] Alida Lassiter MD Anemia, unspecified type 04/09/2025 Telephone [facility] [address] [place] [address] Alida Lassiter MD Dec recall 03/17/2025 Telephone [facility] [address] [place] [address] Alida Lassiter MD Durable Medical Equipment (DME Order: Ensure) 03/13/2025 11:15 AM EDT Office Visit [facility] [address] [place] [address] Alida Lassiter MD Chronic abdominal pain (Primary Dx); Weight loss; Steatosis, liver; Early satiety; Essential hypertension 03/13/2025 Refill [facility] [address] [place] [address] Alida Lassiter MD Primary osteoarthritis of both knees; Chronic pain of left knee 03/13/2025 Travel 03/12/2025 Travel 03/12/2025 Telephone [facility] [address] [place] [address] Alida Lassiter MD Chart prep 03/04/2025 Patient Outreach [facility] [address] [place] [address] Alida Lassiter MD Pre-visit Planning (SDOH screening negative and tobacco screening negative) 02/19/2025 2:00 PM EDT Office Visit [facility] [address] [place] [phone] Kelsi Campos Dental calculus (Primary Dx); Severe localized gingival recession; Gingival recession, generalized 02/11/2025 9:20 AM EDT Office Visit [facility] [address] [place] [phone] Alida Conklin MD Chronic abdominal pain (Primary Dx); Right lower quadrant pain; Essential hypertension 02/11/2025 Travel from Last 3 Months Immunizations Immunization Administration Dates Next Due Influenza High-dose Quadriva lent Preservative Free 04/05/2023,05/03/2021,04/29/2020 Influenza injectable quadriv alent IIV4 with preservative 04/21/2019,08/08/2017 Influenza injectable quadriv alent preservative free 06/14/2018 Influenza, IIV3, injectable 03/03/2011, 9 Influenza, Split (incl. bertrand fied surface antigen) 03/17/2013,07/17/2012 Influenza, seasonal, injecta ble, preservative free 09/05/2024 Pneumococcal Conjugate PCV 20 04/05/2023 Pneumococcal Polysaccharide PPSV23 11/09/2017, TD (adult), 2 Lf tetanus tox oid, preservative free, adsorbed 11/14/2006 Tdap 09/20/2024,11/09/2017 Zoster, Recombinant 09/15/2019,06/17/2019 Family History Medical History Relation Name Comments Cancer Brother Hypertension Mother Diabetes Sister Relation Name Status Comments Brother Mother Sister Social History Tobacco Use Types Packs/Day Years Used Date Smoking Tobacco: Never Passive Smoke Exposure: Never Smokeless Tobacco: Never Tobacco Cessation:Counseling Given: Not Answered Alcohol Use Standard Drinks/Week Comments Never 0 [...] housing situation today? I have anita duke 03/04/[address] you li ve. Do you have problems with any of the following? None of the above 03/04/2025 Food Insecurity Answer Date Recorded Within the past 12 months, y ou worried that your food would run out before you got money to buy more: Never True 03/04/2025 Within the past 12 months,th e food you bought just didn't last and you didn't have enough money to get more: Never True Transportation Answer Date Recorded In the past 12 months, has l ack of transportation kept you from medical appts, meetings, work or from getting things needed for daily living? No 03/04/2025 Utilities Answer Date Recorded In the past 12 months, has t he electric, gas, oil or water company threatened to shut off services in your home? Yes 03/04/2025 Depression Answer Date Recorded Patient Health Questionnaire-2 Score 0 10/24/2023 Internet Access Answer Date Recorded Internet Access Q1 Yes 03/04/2025 Internet Access Q2 Not on file 03/04/2025 Sex and Gender Information Value Date Recorded Sex Assigned at Male 05/08/2022 10:14 AM EDT Legal Sex Male 10:14 AM EDT Gender Identity Male 05/08/2022 10:14 AM EDT Sexual Orientation Straight 05/08/2022 10 :14 AM EDT Last Filed Vital Signs Vital Sign Reading Time Taken Comments Blood Pressure 138/74 03/13/2025 11:02 AM EDT Pulse 89 03/13/2025 11:02 AM EDT Temperature 36.1 C (97 F) 03/13/2025 11:02 AM EDT Respiratory Rate 18 03/13/2025 11:02 AM EDT Oxygen Saturation 95% 03/13/2025 11:02 AM EDT Inhaled Oxygen Concentration - - Weight 77.8 kg (171 lb 9.6 oz) 03/13/2025 11:02 AM EDT Height 165.1 cm (5' 5 ) 03/13/2025 11:02 AM EDT Body Mass Index 28.56 03/13/2025 11:02 AM EDT Plan of Treatment Upcoming Encounters Date Type Department Care Team (Late st Contact Info) Description 06/25/2025 10:15 AM EST Office Visit [facility] [address] [place] [address] Alida Lassiter MD [address] [place] [address] 08/27/2025 8:00 AM EST Office Visit [facility] [address] [place] [address] Kelsi Campos [address] [place] [address] Health Maintenance Due Date Last Done Comments Anal Pap 1945 Hepatitis A Vaccines (1 of 2 - Risk 2-dose series) 1963 Hepatitis B Vaccines (1 of 3 - Risk 3-dose series) 2004 RSV Patients and Patients Aged 60 years or older (1 - 1-dose 75+ series) 2019 Dental Oral Exam 06/23/2023 12/21/2022 Depression Screening 10/23/2024 10/24/2023, 10/24/19 24 COVID-19 Vaccine ( season) 2025 Influenza Vaccine (#1) 2025 , 04/05/2023, 05/03/2021, Additional history exists Alcohol/Substance Use Screening 05/13/2025 05/13/2024 Dental X-Ray: Bitewings 07/09/2025 07/08/2024, 10/26 Dental Prophylaxis 08/23/2025 02/19/2025, 1 , 10/26/2022 SDOH Screening 03/04/2026 03/04/2025 Tobacco Screening 03/13/2026 03/13/2025 Dental X-Ray: Full Mouth 07/09/2027 07/08/2024, 02/06 Lipid Panel 02/11/2030 02/11/2025, 02/07, 05/16/2021 DTaP/Tdap/Td Vaccines (3 - Td or Tdap) 09/20/2034 09/20/2024, 11/09/2017, 11/14/2006 Zoster Vaccines Completed 09/15/2019, 06/17/2019 Pneumococcal Vaccine: 50+ Years Completed 04/05/2023, 11/09/2017, 03/25/2009 HIB Vaccines Aged Out No longer eligi ble based on patient's age to complete this topic HPV Vaccines Aged Out No longer eligi ble based on patient's age to complete this topic IPV Vaccines Aged Out No longer eligi ble based on patient's age to complete this topic Meningococcal B Vaccine Aged Out No l onger eligible based on patient's age to complete this topic Meningococcal Vaccine Aged Out No goyo carmelita eligible based on patient's age to complete this topic RSV under 20 months Aged Out No longe r eligible based on patient's age to complete this topic Rotavirus Vaccines Aged Out No longer eligible based on patient's age to complete this topic Procedures Procedure Name Priority Date/Time Associated Diagnosis Comments CASE PRESENTATION, DETAILED AND EXTENSIVE TREATMENT PLANNING Routine 02/19/2025 2:00 PM EDT Dental calculus Severe localized gingival recession Gingival recession, generalized ORAL HYGIENE INSTRUCTIONS Routine 02/19/2025 2:00 PM EDT Dental calculus Severe localized gingival recession Gingival recession, generalized TOPICAL APPLICATION OF FLUORIDE VARNISH Routine 02/19/2025 2:00 PM EDT Dental calculus Severe localized gingival recession Gingival recession, generalized PROPHYLAXIS - ADULT Routine 02/19/2025 2 :00 PM EDT Dental calculus LIPID PANEL, STANDARD Routine 02/11/2025 8:57 AM EDT Primary hypertension CBC WITH AUTO DIFFERENTIAL Routine 02/11/2025 8:57 AM EDT Primary hypertension COMPREHENSIVE METABOLIC PANEL Routine 02/11/2025 8:57 AM EDT Primary hypertension INTRAORAL - COMPLETE SERIES OF RADIOGRAPHIC IMAGES Routine 07/08/2024 12:00 PM EST Dental calculus Gingival recession, generalized Chronic periodontitis PERIODIC ORAL EVALUATION - ESTABLISHED PATIENT Routine 12/21/2022 10:30 AM EDT from Last 3 Months or Most Recently Relevant to Health Maintenance Results * (ABNORMAL) CBC auto differential (02/11/2025 8:57 AM EDT) White Blood Count 4.2(L) 4.8 - 10.8 X10*3/uL [facility] Red Blood Count 4.26(L) 4.60 - 5.80 X10*6/uL [facility] Hemoglobin 12.9(L) 14.0 - 18.0 g/dl [facility] Hematocrit 38.3(L) 42.0 - 52.0 % [facility] Mean Corpuscular Volume 89.9 80.0 - 98.0 fL [facility] Mean Corpuscular Hemoglobin 30.3 27.0 - 33.0 pg [facility] Mean Corpuscular HGB Conc 33.7 31.0 - 36.0 g/dl [facility] Red Cell Distribution Width 12.6 11.0 - 16.0 % [facility] Platelet Count 243 160 - 400 X10*3/uL [facility] Mean Platelet Volume 10.8 9.4 - 12.4 fL [facility] Neutrophils Percent Auto 50.7 45 - 73 % [facility] Imm Gran Pct Auto 0.5(H) 0.0 - 0.4 % [facility] Lymphocytes Percent Auto 33.8 20 - 40 % [facility] Monocytes Percent Auto 11.2(H) 2 - 11 % [facility] Eosinophils Percent Auto 3.1 0 - 4 % [facility] Basophils Percent Auto 0.7 0 - 2 % [facility] NRBC Pct Auto 0.0 0.0 - 0.2 /100WBC [facility] Neutrophils Absolute Auto 2.1 2.0 - 8.3 x10*3/uL [facility] Imm Gran Abs Auto 0.02 0.00 - 0.03 X10*3/uL [facility] Lymphocytes Absolute Auto 1.4 1.2 - 4.9 X10*3/uL [facility] Monocytes Absolute Auto 0.5 0.1 - 1.2 X10*3/uL [facility] Eosinophils Absolute Auto 0.1 0.0 - 0.4 X10*3/uL [facility] Basophils Absolute Auto 0.0 0.0 - 0.2 X10*3/uL [facility] NRBC Abs Auto 0.000 0.0 - 0.012 X10*3/uL [facility] Blood Venous blood specimen / Unknown 02/11/2025 8:57 AM EDT 02/11/2025 11:31 AM EDT Alida Azar MD LAB BLOOD ORDERABLES Final Result [facility] [address] [place] [address] [phone] * (ABNORMAL) Lipid Panel, Standard (02/11/2025 8:57 AM EDT) Triglycerides 129 <150 mg/dL [facility] Comment:Desirable Triglyceri de: less than 150 mg/dLBorderline High Triglyceride 150-199 mg/dLHigh Triglyceride: 200-499 mg/dLVery High Triglyceride: greater than or equal to 5OO mg/dL Cholesterol 210(H) <200 mg/dL [facility] Comment:Desirable Cholestero l: less than 200 mg/dLBorderline High Cholesterol: 200-239 mg/dLHigh Cholesterol: greater than 239 mg/dL LDL Cholesterol Calculated 138(H) <100 mg/dL [facility] Comment:Desirable LDL: less than 100 mg/dLNear Optimal/Above Optimal LDL: 110- 129 mg/dLBorderline High LDL: 130-159 mg/dLHigh LDL: 160-189 mg/dLVery High LDL: greater than or equal to 190 mg/dL HDL Cholesterol 47 >40 mg/dL [facility] Comment:Desirable HDL: great er than 40 mg/dL Note: This HDL assay may give artificially low results in patients with liver disease. Blood Venous blood specimen / Unknown 02/11/2025 8:57 AM EDT 02/11/2025 11:31 AM EDT Alida Azar MD LAB BLOOD ORDERABLES Final Result [facility] [address] [place] [address] [phone] * (ABNORMAL) Comprehensive Metabolic Panel (02/11/2025 8:57 AM EDT) Sodium 140 135 - 145 mmol/L [facility] Potassium 4.4 3.3 - 5.1 mmol/L [facility] Chloride 106 96 - 108 mmol/L [facility] Carbon Dioxide 26 22 - 29 mmol/L [facility] Anion Gap 12 12 - 20 [facility] Urea Nitrogen (BUN) 20(H) 9 - 16 mg/dL [facility] Creatinine, Serum 1.06 0.5 - 1.4 mg/dL [facility] Estimated Glomerular Filt Rate >60 [facility] Comment:Chronic Kidney Disea se: Estimated GFR < 60 mL/min/[id number] Kidney Disease: Estimated GFR < 15 mL/min/1.73m2 Glucose 105 60 - 115 mg/dL [facility] Calcium 9.2 8.4 - 10.2 mg/dL [facility] Bilirubin, Total 0.3 0.0 - 1.0 mg/dL [facility] Aspartate Amino Transferase 43(H) 5 - 37 U/L [facility] Alanine Aminotransferase 36 0 - 40 U/L [facility] Total Protein 7.3 6.5 - 8.0 g/dL [facility] Albumin Level 4.4 3.5 - 5.0 g/dL [facility] Alkaline Phosphatase 121(H) 39 - 117 U/L [facility] Blood Venous blood specimen / Unknown 02/11/2025 8:57 AM EDT 02/11/2025 11:31 AM EDT us Alida Azar MD LAB BLOOD ORDERABLES Final Result [facility] [address] [place] [address] [phone] from Last 3 Months Insurance [facility] SN[facility] OPTIONS (HMO D-SNP) DENTAL - [facility] [place] ADULT Care Teams Sales Professional Bilingual Relationship Specialty Start Date End Date Alida Lassiter MD [address] [place] [id number] PCP - General Family Medicine 03/20/18
--- OUTSIDE RECORDS SUMMARY | 2025-05-13 13:44 | XMS_ITS | Encounter Summary ---
Author Organization [email or web address] Address [address] [facility] 7t [place] [address] Care Team Providers Care Driver Education Instructor Name Role Phone Alida Lassiter MD Primary Care Provide r Reason for Visit * Reason Comments Med Refill Encounter Details Date Type Department Care Team ([facility] Contact Info) Description 12/07/2022 Refill [facility] MEDICINE [address] [place] [address] Margaret Warren MD [address] [place] [address] [phone] Primary hypertension Social History Tobacco Use Types Packs/Day Years [...] AM EDT documented as of this encounter Plan of Treatment Upcoming Encounters Date Type Department Care Team ([facility] Contact Info) Description 06/25/2025 10:15 AM EST Office Visit [facility] MEDICINE [address] [place], [place] [phone] Alida Lassiter MD [address] [place] [address] [phone] 08/27/2025 8:00 AM EST Office Visit [facility] ADULT DENTAL [address] [place], [place] [phone] Kelsi Campos [address] [place] [address] documented as of this encounter Visit Diagnoses Diagnosis Primary hypertension Unspecified essential hypertension documented in this encounter Care Teams Driver Education Instructor Relationship Specialty Start Date End Date Alida Lassiter MD [address] [place] [address] PCP - General Family Medicine 03/20/18 documented as of this encounter
--- OUTSIDE RECORDS SUMMARY | 2025-05-13 13:44 | XMS_ITS | Encounter Summary ---
Author Organization [employer] Address [address] [facility] 7t [place] [address] Care Team Providers Care Epic Radiant Analyst Name Role Phone Alida Lassiter MD Primary Care Provide r Reason for Visit * Reason Onset Date Comments Durable Medical Equipment 04/11/2024 Encounter Details Date Type Department Care Team ([facility] Contact Info) Description 04/11/[address] [facility] MEDICINE [address] [place], [place] [phone] Alida Lassiter MD [address] [place], [place] [phone] Durable Medical Equipment Social History Tobacco Use Types Packs/Day Years Used Date Smoking Tobacco: Never Passive Smoke Exposure: Never Smokeless Tobacco: Never Alcohol Use Standard Drinks/Week Comments Never 0 (1 standard drink = 0.6 oz pur e alcohol) Depression Answer Date Recorded Patient Health Questionnaire-9 [...] encounter Miscellaneous Notes * Telephone Encounter - Ganga Loyd - 04/11/2024 9:49 AM EDT Tc from pt daughter requesting a New Script for Bed Adalberto to be [facility] due to current script Expiring. documented in this encounter Plan of Treatment Upcoming Encounters Date Type Department Care Team ([facility] Contact Info) Description 06/25/2025 10:15 AM EST Office Visit [facility] MEDICINE [address] [place] [address] Alida Lassiter MD [address] [place] [address] 08/27/2025 8:00 AM EST Office Visit [facility] ADULT DENTAL [address] [place] [address] Kelsi Campos [address] [place] [address] documented as of this encounter Visit Diagnoses Not on filedocumented in this encounter Additional Health Concerns Assessment Noted Time PHQ-9 Depression Total Score: 0 10/24/19 24 9:44 AM EDT documented as of this encounter Care Teams Epic Radiant Analyst Relationship Specialty Start Date End Date Alida Lassiter MD [address] [place] [phone] PCP - General Family Medicine 03/20/18 documented as of this encounter
--- OUTSIDE RECORDS SUMMARY | 2025-05-13 13:44 | XMS_ITS | Encounter Summary ---
Author Organization [employer] Address 75 [facility] 7t [place] [address] Care Team Providers Care Mountain Bike Guide Name Role Phone Alida Lassiter MD Primary Care Provide r Reason for Visit * Reason Comments Med Refill Encounter Details Date Type Department Care Team ([facility] Contact Info) Description 12/07/2022 Refill [facility] MEDICINE [address] [place] [address] Belen Goff, AQUACULTURE WORKER [address] [place] [address] B12 deficiency Social History Tobacco Use Types Packs/Day Years [...] Upcoming Encounters Date Type Department Care Team ([facility] Contact Info) Description 06/25/2025 10:15 AM EST Office Visit [facility] MEDICINE [address] [place] [address] Alida Lassiter MD [address] [place] [address] 08/27/2025 8:00 AM EST Office Visit [facility] ADULT DENTAL [address] [place] [address] Kelsi Campos [address] [place] [address] documented as of this encounter Visit Diagnoses Diagnosis B12 deficiency documented in this encounter Care Teams Mountain Bike Guide Relationship Specialty Start Date End Date Alida Lassiter MD [address] [place] [address] PCP - General Family Medicine 03/20/18 documented as of this encounter
--- OUTSIDE RECORDS SUMMARY | 2025-05-13 13:44 | XMS_ITS | Encounter Summary ---
Author Organization [employer] Address [address] [facility] 7t h [address] [address] Care Team Providers Care Impregnator Helper Name Role Phone Alida Lassiter MD Primary Care Provide r Encounter Details Date Type Department Care Team ([facility] Contact Info) Description 09/08/2022 Abstract [facility] ADULT DENTAL [address] [place] [address] Esau Melo DMD [address] [place] [address] Social History Tobacco Use Types Packs/Day Years [...] Upcoming Encounters Date Type Department Care Team ([facility] Contact Info) Description 06/25/2025 10:15 AM EST Office Visit [facility] MEDICINE [address] [place] [address] Alida Lassiter MD [address] [place] [address] 08/27/2025 8:00 AM EST Office Visit [facility] ADULT DENTAL [address] [place], [place] [phone] Sher Camposaris [address] [place], [place] [phone] documented as of this encounter Visit Diagnoses Not on filedocumented in this encounter Care Teams Impregnator Helper Relationship Specialty Start Date End Date Alida Lassiter MD [address] [place] [address] PCP - General Family Medicine 03/20/18 documented as of this encounter
[2025-05-13] MEDS: iohexoL 350 MG/ML 100 ML INFUS..BTL IV (13:55)
[2025-05-13] MEDS: Barium Sulfate Oral (Mocha) 450 ML ORAL.SUSP 900 ML PO (13:56)
[2025-05-13 17:04] LABS: Creatinine POC 0.8 mg/dL (0.5-1.4); GFR POC > 60
== END 2025-05-13 11:16 | disposition home or self-care (01) ==
LOC: HO.CT 11:15
PROVIDERS: PCP Internal Medicine; Visit Provider Student in an Organized Health Care Education/Training Program
DX: R10.9 Unspecified abdominal pain (principal); G89.29 Other chronic pain
CPT/HCPCS: 74177; 82565; Q9967

== ENCOUNTER → 2025-05-13 11:20 | Outpatient (BNV) | payer OTHER, SELFPAY | PROVIDERS: PCP Internal Medicine; Visit Provider Radiology Diagnostic Radiology | DX: K57.90 Diverticulosis of intestine, part unspecified, without perforation or abscess without bleeding (principal); K59.00 Constipation, unspecified; K40.90 Unilateral inguinal hernia, without obstruction or gangrene, not specified as recurrent; N28.1 Cyst of kidney, acquired | CPT/HCPCS: 74177 ==

== ENCOUNTER 2025-06-01 15:40 | Outpatient (AMB) | payer OTHER, SELFPAY ==
--- NOTE | 2025-06-01 15:42 | MHC.OFFVIS ---
Vital Signs 06/01/25 15:50 Height 5 ft 5 in Weight 165 lb BMI 27.5 BP 136/78 Blood Pressure Location Rt brachial Position Sitting Pulse 74 Pulse Source Pulse Oximeter Pulse Oximetry (%) 95 Oxygen Delivery Method Room Air Intake Visit Reasons: Abdominal pain Intake Note: Returning pt last seen in 2020 for colo screening. Mgmt of GERD. CC: C.O. exacerbation of GERD despite current therapies. Pt confirms he is taking pantoprazole and famotidine as instructed but is finding them less helpful than they were originally. They also report having a recent CT scan done per PCP order. Commercial Construction Superintendent Required: Yes Commercial Construction Superintendent Services: Commercial Construction Superintendent Offered & Declined Accompanied by: Daughter Allergies No Known Allergies Allergy (Mild, Verified 10/26/23 10:05) NOT APPLICABLE HPI HPI Abdominal pain: Details: COLONOSCOPY 08/24/2020 Findings: Terminal Ileum-normal Cecum:normal Ascending Colon: normal Transverse Colon -normal Descending Colon: 10 mm sessile polyp removed with cold snare, one prominent fold noted and injected with ORISE but no pit pattern noted to suggest an adenomatous tissue present Sigmoid Colon: Small scattered diverticula Rectum: Retroflexion with small internal hemorrhoids, grade I Anorectum - normal Colon preparation: Brainard Bowel Preparation Scale Right colon; 2 Transverse colon: 2 Left colon; 1 (0 = Unprepared colon segment with mucosa not seen due to solid stool that cannot be cleared. 1 = Portion of mucosa of the colon segment seen, but other areas of the colon segment not well seen due to staining, residual stool and/or opaque liquid. 2 = Minor amount of residual staining, small fragments of stool and/or opaque liquid, but mucosa of colon segment seen well. 3 = Entire mucosa of colon segment seen well with no residual staining, small fragments of stool or opaque liquid) Impression and Post Procedure Diagnosis: polyp internal hemorrhoids diverticular disease Plan: High fiber diet leaflet Avoid straining at stool, epsom salts and sitz bath, anusol supps or cream prn Repeat Colonoscopy in 3 years due to left sided prep or earlier if clinically indicated TODAY'S VISIT Patient is here today for follow-up. Patient is accompanied by his daughter. Had colonoscopy in August of 2020, was supposed to have colonoscopy in 3 years after due to suboptimal prep to left side. Patient reports frequent abdominal bloating. Patient also reports acid reflux. Patient reports that he was taking pantoprazole in the morning and famotidine at bedtime. Patient reports that he continues to have reflux despite taking the medications. Patient denies eating late at night. Patient denies dyspepsia, dysphagia or odynophagia. Denies melena, hematochezia, unintentional weight loss or ribbon like stools. Patient denies any other GI concerning symptoms. [facility] Medical History History of memory loss Lab test negative for COVID-19 virus HTN (hypertension) Vitamin B12 deficiency Hyperlipidemia GERD (gastroesophageal reflux disease) Surgical History History of ERCP History of colonoscopy Family History Father Hx of type 1 diabetes mellitus Mother No problems noted. Social History Are you a primary coronary care unit nurse to a significant other at home: No Do you presently have visiting nurse or other home services: No Alcohol intake: never Current occupational status: retired Current occupation: lt handed Review of Systems Const Denies weight gain and Denies weight loss ENT Reports no additional complaints, Denies dysphagia and Denies odynophagia Card Reports no additional complaints Resp Reports no additional complaints GI Denies abdominal pain, Denies belching, Denies melena, Reports bloating, Denies change in bowel habits, Denies dysphagia, Denies excessive flatus, Denies dyspepsia, Reports heartburn, Denies diarrhea, Denies loose stools, Denies nausea, Denies odynophagia and Denies vomiting Reports no additional complaints Musc Reports no additional complaints Neuro Reports no additional complaints Psych Reports no additional complaints Endo Reports no additional complaints Physical Exam Vital Signs: Last Vital Signs Pulse 74 06/01/25 15:50 BP 136/78 06/01/25 15:50 Pulse Ox 95 06/01/25 15:50 Oxygen Delivery Method Room Air 06/01/25 15:50 BMI result Body Mass Index 27.5 Const General: healthy appearing, no acute distress and well developed Nutritional Appearance: well nourished Orientation/consciousness: patient oriented x3 Resp Effort & Inspection: normal respiratory effort, able to speak in complete sentences, no tracheal deviation and symmetric chest movement Auscultation: clear to auscultation bilaterally Cardio Rate: regular rate GI Inspection: Yes normal to inspection and No distended Palpation (GI): Soft to palpation, not firm, nontender and No hepatosplenomegaly present Auscultation: normal bowel sounds General: Yes no CVA tenderness Back/Spine/Pelvis Back: no CVA tenderness Skin General skin exam: elasticity normal, turgor normal and dry skin Neuro General: patient oriented x3 Psych Appearance: grossly normal Mental Status: mental status grossly normal Assessment & Plan Assessment & Plan (1) GERD (gastroesophageal reflux disease): Code(s): K21.9 - Gastro-esophageal reflux disease without esophagitis Qualifiers: Esophagitis presence: esophagitis presence not specified Qualified Code(s): K21.9 - Gastro-esophageal reflux disease without esophagitis (2) Postprandial epigastric pain: Code(s): R10.13 - Epigastric pain (3) Postprandial abdominal bloating: Code(s): R14.0 - Abdominal distension (gaseous) (4) Screen for colon cancer: Code(s): Z12.11 - Encounter for screening for malignant neoplasm of colon Plan Will check transglutaminase, vitamin B12, folate, vitamin-D, lipase and thyroid study. Will change PPI to Nexium. Continue taking famotidine at bedtime. Avoid dietary triggers and late night snacking. Staying upright for minimum 3 hours after meals discussed with patient. Patient will return in 2-3 months we will discuss going for colonoscopy and possibly upper endoscopy if symptoms still persist. Patient may take simethicone as needed for bloating. Both patient and his daughter are agreeable to plan of care and verbalizes understanding of instructions. They were given the opportunity to ask questions and all questions answered. Thank you for allowing me to participate in his care Orders: Orders Transglutaminase IgA 06/01/25 R10.9 - Unspecified abdominal pain Vitamin B12 and Folate 06/01/25 R19.7 - Diarrhea, unspecified Vitamin D 25-OH (D2 and D3) 06/01/25 E55.9 - Vitamin D deficiency, unspecified TSH reflex Free T4 06/01/25 K59.00 - Constipation, unspecified Lipase 06/01/25 R10.9 - Unspecified abdominal pain Medications: New simethicone (Gas Relief (simethicone)) 125 mg PO TID PRN 90 tabs 3RF abdominal distention esomeprazole magnesium (Nexium) 40 mg PO DAILY 30 caps 3RF K21.9 - Gastro-esophageal reflux disease without esophagitis Discontinued simethicone Discontinued Reason: Doctor's Order 125 mg PO TID-QID PRN 120 caps 2RF abdominal distention R14.0 - Abdominal distension (gaseous) Coding Level of Care Code New Pt Level 4 (32178) Diagnoses Gastroesophageal reflux disease, unspecified whether esophagitis present K21.9 Esophagitis presence: esophagitis presence not specified Postprandial epigastric pain R10.13 Postprandial abdominal bloating R14.0 Screen for colon cancer Z12.11 Time Spent (min) 50 Comment 35 minutes spent with patient and additional 15 minutes spent reviewing his records
[2025-06-01 15:50] VITALS: BP 136/78; PULSE 74; O2SAT 95; BMI 27.5
== END 2025-06-01 16:10 | disposition home or self-care (01) ==
LOC: HO.HGI 15:41
PROVIDERS: PCP Internal Medicine; Visit Provider Nurse Practitioner Family
DX: K21.9 Gastro-esophageal reflux disease without esophagitis (principal); R10.13 Epigastric pain; R14.0 Abdominal distension (gaseous)
CPT/HCPCS: 99204

== ENCOUNTER → 2025-06-01 15:40 | Outpatient (BNVA) | payer OTHER, SELFPAY | PROVIDERS: PCP Internal Medicine; Visit Provider Nurse Practitioner Family | DX: K21.9 Gastro-esophageal reflux disease without esophagitis (principal); R10.13 Epigastric pain; R14.0 Abdominal distension (gaseous) | CPT/HCPCS: 99202 ==

== ENCOUNTER 2025-06-10 10:38 | Outpatient (REF) | payer OTHER, SELFPAY ==
--- NOTE | ~2025-06-10 | US_ITS ---
EXAMINATION: US ABDOMEN COMPLETE WITH LIVER ELASTOGRAPHY HISTORY: liver steatosis TECHNIQUE: Real-time grayscale ultrasound imaging of the abdomen was performed and images were reviewed. COMPARISON: Comparison is made with the prior examination dated 03/28/2023. FINDINGS: Liver: The right lobe of the liver measures 13.7 cm in size. The left lobe of the liver measures 7.9 cm in size. The liver demonstrates increased echotexture, consistent with steatosis. No focal mass or intrahepatic biliary ductal dilatation is identified. There is normal hepatopedal flow in the portal vein. Ultrasound elastography of the liver was performed with 10 separate measurements of the liver parenchyma with the patient in the supine position. Measurements were obtained approximately 2 cm below Isis's capsule and perpendicular to the capsule. The median shear wave velocity is 1.80 m/s. The interquartile range/median (IQR/median) is 0.07. Gallbladder and biliary tree: The gallbladder is unremarkable, without evidence of calculi, wall thickening, or pericholecystic fluid. There is no sonographic Kaminski sign. The common bile duct is normal in caliber measuring 6 mm. Kidneys: The right kidney measures 10.2 cm in length and demonstrates a 1.1 x 1.2 x 1.4 cm upper pole cyst. The left kidney measures 9.7 cm in length and demonstrates a 4 mm exophytic cyst in the interpolar region. The kidneys are otherwise unremarkable, without evidence of solid masses, hydronephrosis, or calculi. Pancreas: The pancreatic head, neck, and body are unremarkable. The pancreatic tail is obscured by bowel gas. Spleen: The spleen is normal in size and contour, measuring 8.2 cm in length. Abdominal aorta and inferior vena cava: The visualized portions of the abdominal aorta and inferior vena cava are normal in caliber. There is no free fluid in the abdomen. US/US abdomen comp w elastography IMPRESSION: Hepatic steatosis. The median shear wave velocity in the liver is 1.80 m/s, corresponding to a median liver stiffness of 9.75 kPa. The IQR/median value is 0.07. This is indicative of a quality data set. Findings are indicative of a high elastography value suggestive of compensated advanced chronic liver disease. REFERENCE: Society of [employer]iologists in Ultrasound Liver Stiffness Thresholds (2020): LIVER STIFFNESS THRESHOLDS: *Shear wave velocity less than 1.3 m/s (Liver Stiffness equal or less than 5 kPa): High probability of being normal. *Shear wave velocity less than 1.7 m/s (Liver Stiffness less than 9 kPa): In the absence of other known clinical signs, rules out compensated advanced chronic liver disease. *Shear wave velocity between 1.7-2.1 m/s (Liver Stiffness 9-13 kPa): Suggestive of compensated advanced chronic liver disease but need further test for confirmation. *Shear wave velocity between 2.1-2.4 m/s (Liver Stiffness 13-17 kPa): Rules in compensated advanced chronic liver disease. *Shear wave velocity greater than 2.4 m/s (Liver Stiffness over 17 kPa): Suggestive of clinically significant portal hypertension. QUALITY OF DATA SET: *IQR/Median value equal or less than 0.15 implies a quality data set. *IQR/Median value over 0.15 implies a poor quality data set. SIGNIFICANT CHANGE FROM PRIOR EXAM: Significant change if liver stiffness measurement is 10% or greater from prior exam. OTHER CONSIDERATIONS: The stage of liver fibrosis may be overestimated in the setting of acute hepatitis, liver inflammation, elevated liver function tests, hepatic vascular congestion, obstructive cholestasis, non-fasting state, and infiltrative diseases such as amyloidosis and lymphoma. In some patients with NAFLD, the liver stiffness thresholds for compensated advanced chronic liver disease may be lower. In causes other than viral hepatitis and NAFLD, liver stiffness thresholds are not well established. Electronically signed by: Rajinder Coyle MD 06/10/2025 12:34 PM [facility]
--- OUTSIDE RECORDS SUMMARY | 2025-06-10 12:13 | XMS_ITS | Encounter Summary ---
Author Organization [employer] Address 75 [facility] 7t [place] [address] Care Team Providers Care Animal Killer Name Role Phone Alida Lassiter MD Primary Care Provide r Encounter Details Date Type Department Care Team ([facility] Contact Info) Description 09/08/2022 Abstract [facility] ADULT DENTAL [address] [place] [address] Rodrigo Cummings DDS [address] [place], [place] [phone] Social History Tobacco Use Types Packs/Day Years [...] Upcoming Encounters Date Type Department Care Team ([facility] Contact Info) Description 06/25/2025 10:15 AM EST Office Visit [facility] MEDICINE [address] [place] [address] Alida Lassiter MD [address] [place], [place] [phone] 07/16/2025 8:30 AM EST Office Visit [facility] ADULT DENTAL [address] [place] [address] 09/08/2025 8:45 AM EST Office Visit [facility] ADULT DENTAL [address] [place] [address] Kelsi Campos [address] [place] [address] documented as of this encounter Visit Diagnoses Not on filedocumented in this encounter Care Teams Animal Killer Relationship Specialty Start Date End Date Alida Lassiter MD [address] [place] [address] PCP - General Family Medicine 03/20/18 documented as of this encounter
--- OUTSIDE RECORDS SUMMARY | 2025-06-10 12:13 | XMS_ITS | Encounter Summary ---
Author Organization [employer] Address 75 [facility] 7t [place] [address] Care Team Providers Care Senior Business Consultant Name Role Phone Alida Lassiter MD Primary Care Provide r Reason for Visit * Reason Comments Med Refill Encounter Details Date Type Department Care Team ([facility] Contact Info) Description 12/07/2022 Refill [facility] MEDICINE [address] [place], [place] [phone] Margaret Warren MD [address] [place] [address] [phone] Primary hypertension Social History Tobacco Use Types [...] Upcoming Encounters Date Type Department Care Team ([facility] Contact Info) Description 06/25/2025 10:15 AM EST Office Visit [facility] MEDICINE [address] [place], [place] [phone] Alida Lassiter MD [address] [place] [address] [phone] 07/16/2025 8:30 AM EST Office Visit [facility] ADULT DENTAL [address] [place], [place] [phone] 09/08/2025 8:45 AM EST Office Visit [facility] ADULT DENTAL [address] [place], [place] [phone] Kelsi Campos [address] [place], [place] [phone] documented as of this encounter Visit Diagnoses Diagnosis Primary hypertension Unspecified essential hypertension documented in this encounter Care Teams Senior Business Consultant Relationship Specialty Start Date End Date Alida Lassiter MD [address] [place], [place] [phone] PCP - General Family Medicine 03/20/18 documented as of this encounter
--- OUTSIDE RECORDS SUMMARY | 2025-06-10 12:13 | XMS_ITS | Encounter Summary ---
Author Organization [employer] Address [address] [facility] [address] [place] [address] Care Team Providers Care Equipment Driver Name Role Phone Alida Lassiter MD Primary Care Provide r Reason for Visit * Reason Onset Date Comments Results 06/05/2025 Encounter Details Date Type Department Care Team ([facility] Contact Info) Description 06/05/2025 Results Follow-Up [facility] [address] [place] [address] Alida Conklin MD [address] [place] [address] CT Abdomen Pelvis w/ Contrast Social History Tobacco Use Types Packs/Day Years [...] encounter Miscellaneous Notes * Telephone Encounter - Jess Tillman RN - 06/08/2025 2:42 PM EST Returned call to pt with MILLIE Clements providing kuwaiti translation. Pt denies abdominal pain in RLQ or LLQ, he states he does not have any stomach pain at all. Advised him to call back if any abdominal pain develops again. Will notify Dr. Bello. * Telephone Encounter - Jess Tillman RN - 06/08/2025 11:55 AM EST Called pt via BLS #[id number]. Informed of CT scan results as below, pt verbalized understanding. He denies RUQ or LUQ pain. He denies having seen GI recently but there is a note from [facility] CHAN Kraus from 06/01/25. Reviewed next PCP follow up, pt verbalized understanding, no further questions. Future Appointments Date Time Provider Department Center 06/25/2025 10:15 AM Alida Azra MD [facility] 08/27/2025 8:00 AM Kelsi SMITH [facility] * Telephone Encounter - Jess Tillman RN - 06/08/2025 11:43 AM EST ----- Message from Alida Scott MD sent at 06/05/2025 2:08 PM EST ----- -please inform pt CT abdominal/pelvis 05/2025 Mild constipation and diverticulosis. No evidence of diverticulitis or obstruction. No inflammatory changes seen in the right lower quadrant. There is a Small right inguinal hernia containing fat. Small right renal cyst. 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 Please check w pt if he already saw GI? 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 If pt reports doing ok will hold on referral Thanks ----- Message ----- From: Niki Hines Results In Sent: 05/13/2025 2:10 PM EST To: Alida Scott MD * Result Encounter Note - Alida Scott MD - 06/05/2025 2:13 PM EST Hi Osvaldo Just as FYI CT abdominal/pelvis 05/2025 Mild constipation and diverticulosis. No evidence of diverticulitis or obstruction. No inflammatory changes seen in the right lower quadrant. There is a Small right inguinal hernia containing fat. Small right renal cyst. 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 He did not c/o RUQ pain but if pt complaining I can refer to surgeon as well for evaluation He does have a 12 mm right renal cyst if you can follow up on that in the future for monitoring if needed Thanks * Result Encounter Note - Alida Scott MD - 06/05/2025 2:08 PM EST -please inform pt CT abdominal/pelvis 05/2025 Mild constipation and diverticulosis. No evidence of diverticulitis or obstruction. No inflammatory changes seen in the right lower quadrant. There is a Small right inguinal hernia containing fat. Small right renal cyst. 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 Please check w pt if he already saw GI? 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 If pt reports doing ok will hold on referral Thanks documented in this encounter Plan of Treatment Upcoming Encounters Date Type Department Care Team (Late st Contact Info) Description 06/25/2025 10:15 AM EST Office Visit [facility] [address] [place] [address] Alida Lassiter MD [address] [place] [address] 07/16/2025 8:30 AM EST Office Visit [facility] ADULT DENTAL [address] [place], [place] [phone] 09/08/2025 8:45 AM EST Office Visit [facility] [address] [place] [address] Kelsi Campos [address] [place] [address] documented as of this encounter Visit Diagnoses Not on filedocumented in this encounter Additional Health Concerns Assessment Noted Time PHQ-9 Depression Total Score: 0 10/24/19 24 9:44 AM EDT documented as of this encounter Care Teams Equipment Driver Relationship Specialty Start Date End Date Alida Lassiter MD [address] [place] [address] PCP - General Family Medicine 03/20/18 documented as of this encounter
--- OUTSIDE RECORDS SUMMARY | 2025-06-10 12:13 | XMS_ITS | Encounter Summary ---
Author Organization [employer] Address [address] [facility] 7t [place] [address] Care Team Providers Care C Software Engineer Name Role Phone Alida Lassiter MD Primary Care Provide r Encounter Details Date Type Department Care Team ([facility] Contact Info) Description 09/08/[address] [facility] ADULT DENTAL [address] [place] [address] Esau Melo DMD [address] [place] [address] Social History Tobacco Use Types Packs/Day Years [...] Description 06/25/2025 10:15 AM EST Office Visit [facility] MED[facility]INE [address] [place] [address] Alida Lassiter MD [address] [place], [place] [phone] 07/16/2025 8:30 AM EST Office Visit [facility] ADULT DENTAL [address] [place] [address] 09/08/2025 8:45 AM EST Office Visit [facility] ADULT DENTAL [address] [place] [address] Kelsi Campos [address] [place] [address] documented as of this encounter Visit Diagnoses Not on filedocumented in this encounter Care Teams C Software Engineer Relationship Specialty Start Date End Date Alida Lassiter MD [address] [place] [address] PCP - General Family Medicine 03/20/18 documented as of this encounter
--- OUTSIDE RECORDS SUMMARY | 2025-06-10 12:13 | XMS_ITS | Encounter Summary ---
Author Organization [employer] Address [address] [facility] 7[address] [place] [address] Care Team Providers Care Lining Marker Name Role Phone Alida Lassiter MD Primary Care Provide r Encounter Details Date Type Department Care Team ([facility] Contact Info) Description 09/08/2022 Abstract [facility] ADULT DENTAL [address] [place] [address] Esau Melo DMD [address] [place] [address] Social History Tobacco Use Types Packs/Day Years [...] Upcoming Encounters Date Type Department Care Team ([facility] Contact Info) Description 06/25/2025 10:15 AM EST Office Visit [facility] [address] [place] [address] Alida Lassiter MD [address] [place], [place] [phone] 07/16/2025 8:30 AM EST Office Visit [facility] ADULT DENTAL [address] [place] [address] 09/08/2025 8:45 AM EST Office Visit [facility] ADULT DENTAL [address] [place] [address] Kelsi Campos [address] [place] [address] documented as of this encounter Visit Diagnoses Not on filedocumented in this encounter Care Teams Lining Marker Relationship Specialty Start Date End Date Alida Lassiter MD [address] [place] [address] PCP - General Family Medicine 03/20/18 documented as of this encounter
--- OUTSIDE RECORDS SUMMARY | 2025-06-10 12:13 | XMS_ITS | Encounter Summary ---
Author Organization [employer] Address [address] [facility] 7t [place] [address] Care Team Providers Care Sports Director Name Role Phone Alida Lassiter MD Primary Care Provide r Reason for Visit * Reason Onset Date Comments Durable Medical Equipment 04/11/2024 Encounter Details Date Type Department Care Team ([facility] Contact Info) Description 04/11/2024 Telephone [facility] [address] [place], [place] [phone] Alida Lassiter MD [address] [place], [place] [phone] Durable Medical Equipment Social History Tobacco Use [...] for Bed Adalberto to be sent to [facility] due to current script Expiring. documented in this encounter Plan of Treatment Upcoming Encounters Date Type Department Care Team (Late st Contact Info) Description 06/25/2025 10:15 AM EST Office Visit [facility] [address] [place] [address] Alida Lassiter MD [address] [place] [address] 07/16/2025 8:30 AM EST Office Visit [facility] ADULT DENTAL [address] [place] [address] 09/08/2025 8:45 AM EST Office Visit [facility] ADULT DENTAL [address] [place] [address] Kelsi Campos [address] [place] [address] documented as of this encounter Visit Diagnoses Not on filedocumented in this encounter Additional Health Concerns Assessment Noted Time PHQ-9 Depression Total Score: 0 10/24/19 24 9:44 AM EDT documented as of this encounter Care Teams Sports Director Relationship Specialty Start Date End Date Alida Lassiter MD [address] [place] [address] PCP - General Family Medicine 03/20/18 documented as of this encounter
--- OUTSIDE RECORDS SUMMARY | 2025-06-10 12:13 | XMS_ITS | Encounter Summary ---
Author Organization [employer] Address [address] [facility] 7[address] [place] [address] Care Team Providers Care Attending Physician Name Role Phone Alida Lassiter MD Primary Care Provide r Encounter Details Date Type Department Care Team (Latest Contact Info) Description 02/23/2021 Abstract [facility] CONVERSIONS Dental, Provider, DDS Social History Tobacco Use Types Packs/Day Years [...] Description 06/25/2025 10:15 AM EST Office Visit [facility] MEDICINE [address] [place] [address] Alida Lassiter MD [address] [place] [address] 07/16/2025 8:30 AM EST Office Visit [facility] ADULT DENTAL [address] [place] [address] 09/08/2025 8:45 AM EST Office Visit [facility] ADULT DENTAL [address] [place] [address] Kelsi Campos [address] [place] [address] documented as of this encounter Visit Diagnoses Not on filedocumented in this encounter Care Teams Attending Physician Relationship Specialty Start Date End Date Alida Lassiter MD [address] [place] [address] PCP - General Family Medicine 03/20/18 documented as of this encounter
--- OUTSIDE RECORDS SUMMARY | 2025-06-10 12:13 | XMS_ITS ---
Acct:[id number] Age/Sex: 80 / M ADM Date: 05/13/25 Loc: HO.CT Attending Dr: Alida Scott MD Ordering Physician: Alida Conklin MD Date of Service: 05/13/25 Procedure(s): CT abdomen pelvis w IV con Accession Number(s): [id number] cc: Alida Lassiter MD; Alida Conklin MD Report Number: [id number]: Total DLP = 379.00 mGy-cm Reason for Exam: chronic RLQ pain EXAMINATION: CT ABDOMEN PELVIS WITH IV CONTRAST HISTORY: chronic RLQ pain COMPARISON: Previous abdominal ultrasound most recent March 2023 TECHNIQUE: CT scan of the abdomen and pelvis was performed following administration of 85 mL Omnipaque 350 using standard departmental protocol. Coronal and sagittal reformatted images were generated and reviewed. This CT exam was performed with one or more of the following dose reduction techniques: automated exposure control, adjustment of the mA and/or kV according to patient size, use of iterative reconstruction technique. DLP: 379 mGy-cm FINDINGS: LOWER CHEST: The visualized lung bases are clear. There is no pleural effusion. CARDIOVASCULATURE: The heart is normal in size. There is no pericardial effusion. LIVER: The liver is normal in size and contour. No liver mass is identified. The hepatic and portal veins are patent. GALLBLADDER / BILE DUCTS: The gallbladder is unremarkable. There is no intra or extrahepatic biliary ductal dilatation. SPLEEN: The spleen is normal in size. No focal splenic lesion is identified. PANCREAS: The pancreas is unremarkable in appearance. ADRENAL GLANDS: Within normal limits. KIDNEYS/RETROPERITONEUM: Right renal cyst measuring 12 mm in the upper pole. No renal calculi are identified. There is no hydronephrosis. No renal masses are identified. LYMPH NODES: No abdominal or pelvic lymphadenopathy. VASCULATURE: The abdominal aorta is normal in caliber. MESENTERY/PERITONEUM: No free fluid. No masses. There is no free intraperitoneal gas. STOMACH: Normal SMALL BOWEL: The small bowel is normal in caliber. COLON: Mild diverticulosis. No evidence of diverticulitis. Mild constipation. 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 APPENDIX: Not seen. No inflammatory changes in the right lower quadrant. URINARY BLADDER/PELVIC ORGANS: The urinary bladder is unremarkable. The prostate gland does not appear enlarged. BONES / SOFT TISSUES: Small right inguinal hernia containing fat. Degenerative changes of the spine and curvature of the lower lumbar spine to the right. Degenerative changes at the hip joints. CT/CT abdomen pelvis w IV con IMPRESSION: Mild constipation and diverticulosis. No evidence of diverticulitis or obstruction. Appendix not seen. No inflammatory changes seen in the right lower quadrant. Small right inguinal hernia containing fat. Small right renal cyst. Electronically signed by: Alisia Rabago MD 05/13/2025 02:06 PM [facility] Dictated By: Alisia Rabago MD Signed By: <Electronically signed by Alisia Rabago MD in OV> 05/13/25 1406 DD/ 1343 TD/TT: 05/13/25 1357 Wiping Rag Washer: LOGAN Procedure Note Donotuseinterpreter, Image - 05/13/[address] [place] [address] [address] Scan Report Signed Patient: Ubaldo AzevedoMR#: [id number] 42 : [id number]:[id number] Age/Sex: 80 / MADM Date: 05/13/25 Loc: HO.CT Attending Dr: Alida Scott MD Ordering Physician: Alida Conklin MD Date of Service: 05/13/25 Procedure(s): CT abdomen pelvis w IV con Accession Number(s): [id number] cc: Alida Lassiter MD; Alida Conklin MD Report Number: [id number]: Total DLP = 379.00 mGy-cm Reason for Exam: chronic RLQ pain EXAMINATION: CT ABDOMEN PELVIS WITH IV CONTRAST HISTORY: chronic RLQ pain COMPARISON: Previous abdominal ultrasound most recent March 2023 TECHNIQUE: CT scan of the abdomen and pelvis was performed following administration of 85 mL Omnipaque 350 using standard departmental protocol. Coronal and sagittal reformatted images were generated and reviewed. This CT exam was performed with one or more of the following dose reduction techniques: automated exposure control, adjustment of the mA and/or kV according to patient size, use of iterative reconstruction technique. DLP: 379 mGy-cm FINDINGS: LOWER CHEST: The visualized lung bases are clear. There is no pleural effusion. CARDIOVASCULATURE: The heart is normal in size. There is no pericardial effusion. LIVER: The liver is normal in size and contour. No liver mass is identified. The hepatic and portal veins are patent. GALLBLADDER / BILE DUCTS: The gallbladder is unremarkable. There is no intra or extrahepatic biliary ductal dilatation. SPLEEN: The spleen is normal in size. No focal splenic lesion is identified. PANCREAS: The pancreas is unremarkable in appearance. ADRENAL GLANDS: Within normal limits. KIDNEYS/RETROPERITONEUM: Right renal cyst measuring 12 mm in the upper pole. No renal calculi are identified. There is no hydronephrosis. No renal masses are identified. LYMPH NODES: No abdominal or pelvic lymphadenopathy. VASCULATURE: The abdominal aorta is normal in caliber. MESENTERY/PERITONEUM: No free fluid. No masses. There is no free intraperitoneal gas. STOMACH: Normal SMALL BOWEL: The small bowel is normal in caliber. COLON: Mild diverticulosis. No evidence of diverticulitis. Mild constipation. 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 APPENDIX: Not seen. No inflammatory changes in the right lower quadrant. URINARY BLADDER/PELVIC ORGANS: The urinary bladder is unremarkable. The prostate gland does not appear enlarged. BONES / SOFT TISSUES: Small right inguinal hernia containing fat. Degenerative changes of the spine and curvature of the lower lumbar spine to the right. Degenerative changes at the hip joints. CT/CT abdomen pelvis w IV con IMPRESSION: Mild constipation and diverticulosis. No evidence of diverticulitis or obstruction. Appendix not seen. No inflammatory changes seen in the right lower quadrant. Small right inguinal hernia containing fat. Small right renal cyst. Electronically signed by: Alisia Rabago MD 05/13/2025 02:06 PM [facility] Dictated By: Alisia Rabago MD Signed By: <Electronically signed by Alisia Rabago MD in OV> 05/13/25 1406 DD/ 1343 TD/TT: 05/13/25 1357 Wiping Rag Washer: LOGAN us Alida Scott MD IMG CT PROCEDURES Final Result * POCT Creatinine GFR (05/13/2025 1:38 PM EST) POCT Creatinine 0.8 0.5 - 1.4 mg/dL [facility] GFR POC >60 [facility] Comment:Chronic Kidney Disea se: Estimated GFR < 60 mL/min/[id number] Kidney Disease: Estimated GFR < 15 mL/min/1.73m2 05/13/2025 1:38 PM EST 05/13/2025 4:53 PM EST Narrative [facility] - 05/13/2025 5:04 PM EST [id number].[facility] Alida Scott MD LAB POINT OF CARE TEST DOCKED DEVICE ORDERABLES Final Result Performing Organization Address City/State/[facility] Co de Phone Number [facility] [address] [place] [phone] * (ABNORMAL) Lipid Panel, Standard (02/11/2025 8:57 AM EDT) Triglycerides 129 <150 mg/dL [facility] Comment:Desirable Triglyceri de: less than 150 mg/dLBorderline High Triglyceride 150-199 mg/dLHigh Triglyceride: 200-499 mg/dLVery High Triglyceride: greater than or equal to 5OO mg/dL Cholesterol 210(H) <200 mg/dL [facility] Comment:Desirable Cholestero l: less than 200 mg/dLBorderline High Cholesterol: 200-239 mg/dLHigh Cholesterol: greater than 239 mg/dL LDL Cholesterol Calculated 138(H) <100 mg/dL [facility] Comment:Desirable LDL: less than 100 mg/dLNear Optimal/Above Optimal LDL: 110- 129 mg/dLBorderline High LDL: 130-159 mg/dLHigh LDL: 160-189 mg/dLVery High LDL: greater than or equal to 190 mg/dL HDL Cholesterol 47 >40 mg/dL [facility] Comment:Desirable HDL: great er than 40 mg/dL Note: This HDL assay may give artificially low results in patients with liver disease. Blood Venous blood specimen / Unknown 02/11/2025 8:57 AM EDT 02/11/2025 11:31 AM EDT us Alida Azar MD LAB BLOOD ORDERABLES Final Result [facility] [address] [place] [address] [phone] from Last 3 Months or Most Recently Relevant to Health Maintenance Insurance [facility] STANDARD [facility] [facility] [employer] (HMO D-SNP) DENTAL [facility] [place] STAND ADULT Care Teams Acting Manager Relationship Specialty Start Date End Date Alida Lassiter MD [address] [place] [phone] PCP - General Family Medicine 03/20/18
--- OUTSIDE RECORDS SUMMARY | 2025-06-10 12:13 | XMS_ITS | Encounter Summary ---
Author Organization [employer] Address [address] [facility] 7t [place] [address] Care Team Providers Care Ply Splicer Name Role Phone Alida Lassiter MD Primary Care Provide r Reason for Visit * Reason Comments Med Refill Encounter Details Date Type Department Care Team ([facility] Contact Info) Description 12/07/2022 Refill [facility] MED[facility]INE [address] [place] [address] Belen Goff, CVT RN [address] [place] [address] B12 deficiency Social History Tobacco Use Types [...] Upcoming Encounters Date Type Department Care Team ([facility] Contact Info) Description 06/25/2025 10:15 AM EST Office Visit [facility] MEDICINE [address] [place] [address] Alida Lassiter MD [address] [place] [address] 07/16/2025 8:30 AM EST Office Visit [facility] ADULT DENTAL [address] [place], [place] [phone] 09/08/2025 8:45 AM EST Office Visit [facility] ADULT DENTAL [address] [place], [place] [phone] Sher Camposaris [address] [place], [place] [phone] documented as of this encounter Visit Diagnoses Diagnosis B12 deficiency documented in this encounter Care Teams Ply Splicer Relationship Specialty Start Date End Date Alida Lassiter MD [address] [place], [place] [phone] PCP - General Family Medicine 03/20/18 documented as of this encounter
--- OUTSIDE RECORDS SUMMARY | 2025-06-10 12:13 | XMS_ITS | Encounter Summary ---
Author Organization [employer] Address [address] [facility] 7t [place] [address] Care Team Providers Care Senior Dentist Name Role Phone Alida Lassiter MD Primary Care Provide r Encounter Details Date Type Department Care Team (Latest Contact Info) Description 02/23/2021 Abstract [facility] CONVERSIONS Dental, Provider, DDS Social History Tobacco [...] Description 06/25/2025 10:15 AM EST Office Visit [facility] MEDICINE [address] [place] [address] Alida Lassiter MD [address] [place] [phone] 07/16/2025 8:30 AM EST Office Visit [facility] ADULT DENTAL [address] [place] [address] 09/08/2025 8:45 AM EST Office Visit [facility] ADULT DENTAL [address] [place] [address] Kelsi Campos [address] [place] [address] documented as of this encounter Visit Diagnoses Not on filedocumented in this encounter Care Teams Senior Dentist Relationship Specialty Start Date End Date Alida Lassiter MD [address] [place] [address] PCP - General Family Medicine 03/20/18 documented as of this encounter
--- OUTSIDE RECORDS SUMMARY | 2025-06-10 12:13 | XMS_ITS | Encounter Summary ---
Author Organization [employer] Address [address] [facility] 7t [place] [address] Care Team Providers Care Process Engineering Intern Name Role Phone Alida Lassiter MD Primary Care Provide r Encounter Details Date Type Department Care Team (Late Contact Info) Description 07/04/2022 Orders Only [facility] MEDICINE [address] [place] [phone] Alyson Owens MD [address] [place] [phone] Vitamin B12 deficiency (Primary Dx) Social History [...] Description 06/25/2025 10:15 AM EST Office Visit [facility] MEDICINE [address] [place] [phone] Alida Lassiter MD [address] [place] [address] [phone] 07/16/2025 8:30 AM EST Office Visit [facility] ADULT DENTAL [address] [place] [address] 09/08/2025 8:45 AM EST Office Visit [facility] ADULT DENTAL [address] [place] [address] Kelsi Campos [address] [place] [address] documented as of this encounter Procedures Procedure Name Priority Date/Time Associated Diagnosis Comments CULTURE, URINE, ROUTINE Routine 02/27/2023 4:05 PM EDT Vitamin B12 deficiency documented in this encounter Results * Culture, Urine, Routine (02/27/2023 4:05 PM EDT) Urine specimen obtained by clean catch procedure / Unknown 02/27/2023 4:05 PM EDT 02/27/2023 5:44 PM EDT Comment:[facility] - 03/01/2023 12:11 PM EDT Urine Culture No growth. Specimen Source: Urine clean catch Alida Azar MD LAB MICROBIOLOGY - GE NERAL ORDERABLES Final Result [facility] [address] [place] [phone] documented in this encounter Visit Diagnoses Diagnosis Vitamin B12 deficiency- Primary Other B-complex deficiencies documented in this encounter Care Teams Process Engineering Intern Relationship Specialty Start Date End Date Alida Lassiter MD [address] [place] [phone] PCP - General Family Medicine 03/20/18 documented as of this encounter
== END 2025-06-10 10:39 | disposition home or self-care (01) ==
LOC: HO.US 10:38
PROVIDERS: PCP Internal Medicine; Visit Provider Student in an Organized Health Care Education/Training Program
DX: K76.0 Fatty (change of) liver, not elsewhere classified (principal)
CPT/HCPCS: 76700; 76981

== ENCOUNTER → 2025-06-10 10:41 | Outpatient (BNV) | payer OTHER, SELFPAY | PROVIDERS: PCP Internal Medicine; Visit Provider Radiology Diagnostic Radiology | DX: K74.60 Unspecified cirrhosis of liver (principal) | CPT/HCPCS: 76700 ==